=== PATIENT | male | born 1995 | race Caucasian/White ===

== ENCOUNTER 2016-07-27 10:00 | Emergency (ER) | payer BC, OTHER ==
[2016-07-27] MEDS ORDERED: Al Hydrox/Mg Hydrox/Simet LIQ* 30 ML UDC PO ONE ×2 (11:07→11:54)
[2016-07-27] MEDS ORDERED: Aspirin Low Dose CHEW TAB* 81 MG PO ONE (11:07)
[2016-07-27] MEDS ORDERED: Lidocaine 2% VISCOUS* 15 ML UDC PO ONE ×2 (11:07→11:54)
[2016-07-27 11:16] LABS: Hematocrit 46 % (42-52); Hemoglobin 15.3 g/dl (14.0-18.0); Mean Corpuscular HGB Conc 34 g/dl (31-36); Mean Corpuscular Hemoglobin 28 pg (27-31); Mean Corpuscular Volume 83 fL (80-94); Mean Platelet Volume 8 um3 (7.4-10.4); Red Blood Count 5.52 10^6/ul (4.0-5.4); Red Cell Distribution Width 13 % (10.5-15); White Blood Count 7.5 10^3/ul (3.5-10.8)
[2016-07-27 11:28] LABS: Albumin 4.5 g/dL (3.2-5.2); Calcium 9.3 mg/dL (8.6-10.3); EGFR African American 90.4 (>60); EGFR Non-African American 70.3 (>60); Globulin 2.9 g/dL (2-4); Total Bilirubin 0.3 mg/dL (0.2-1.0); Total Protein 7.4 g/dL (6.4-8.9)
[2016-07-27 11:32] LABS: Potassium 3.8 mmol/L (3.5-5.0)
--- NOTE | 2016-07-27 11:41 | RAD ---
HISTORY: Chest pain COMPARISONS: July 13, 2006 VIEWS:1: Single frontal portable view of the chest at 11:33 AM FINDINGS: LINES AND TUBES: None. CARDIOMEDIASTINAL SILHOUETTE: The cardiomediastinal silhouette is normal for portable technique. PLEURA: The costophrenic angles are sharp. No pleural abnormalities are noted. LUNG PARENCHYMA: The lungs are clear. ABDOMEN: The upper abdomen is clear. There is no subphrenic gas. BONES AND SOFT TISSUES: No bone or soft tissue abnormalities are noted. IMPRESSION: NO ACTIVE CARDIOPULMONARY DISEASE.
[2016-07-27 11:49] LABS: TSH (Thyroid Stimulating Horm) 5.33 mcIU/mL (0.34-5.60)
[2016-07-27] MEDS ORDERED: Famotidine IV* 10 MG/ML 2 ML (20 mg) IV SLOW PU ONE (11:55)
--- NOTE | 2016-07-27 12:09 | ED ---
HPI Chest Pain - HPI Summary HPI Summary: Pt here w/ central chest burning pain/pressure radiating into Lt shoulder. Feels like GERD pain he's had for years but has gotten worse in the past few weeks. Burning up into throat. He cannot sleep past few nights d/t pain so came in. Reports he's had GERD since 11 y.o. and did not take medication for this for 10 yrs. He was seen in April 2016 and states that an endoscope identified "stage 4" issue - was told he should have surgery immediately but he has postponed this d/t life transitions (ie. 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 He plans to move to [place] next week which is why he hasn't seen anyone recently. Has been taking protonix as directed but has not been taking carafate as directed. Tried a dose last night w/o relief so came in. Also admits he vomited a couple of days ago. Denies hematemesis, dark/ tarry stool, hematochezia. Has not been eating/drinking much as it's painful. Denies smoking, drinking ETOH, skipping meals and/or excessive caffeine. No cardiac hx. Father had an NV in his 60's. - History of Current Complaint Hx Obtained From: Patient Pain Intensity: 6 <Nichole Card - Last Filed: 07/27/16 16:17> <Di Ware - Last Filed: 08/02/16 10:44> - History of Current Complaint Chief Complaint: EDChestPainROMI Time Seen by Provider: 07/27/16 10:06 - Allergy/Home Medications Allergies/Adverse Reactions: Allergies Allergy/AdvReac Type Severity Reaction Status Date / Time No Known Allergies Allergy Verified 07/27/16 10:05 Home Medications: Home Medications Pantoprazole TAB (NF) [Protonix TAB (NF)] 40 mg PO BID 07/27/16 [History Confirmed 07/27/16] Sucralfate TAB* [Carafate*] 1 gm PO QID 07/27/16 [History Confirmed 07/27/16] PMH/Surg Hx/FS Hx/Imm Hx Previously Healthy: No - poor compliance w/ GERD dx Endocrine/Hematology History: Denies: Hx Anticoagulant Therapy, Hx Blood Disorders GI History: Reports: Hx Gastroesophageal Reflux Disease, Hx Hiatal Hernia Denies: Hx Cirrhosis, Hx Crohn's Disease, Hx Diverticulosis, Hx Gall Bladder Disease, Hx Gastrointestinal Bleed, Hx Irritable Bowel, Hx Obstructive Bowel Infectious Disease History: No Infectious Disease History: Denies: Traveled Outside the US in Last 30 Days - Family History Known Family History: Positive: Cardiac Disease - father - Social History Occupation: Retired Lives: With Family Alcohol Use: None Hx Substance Use: No Substance Use Type: Reports: None Hx Tobacco Use: No Smoking Status (MU): Never Smoked Tobacco <Nichole Card - Last Filed: 07/27/16 16:17> Review of Systems Negative: Fever, Chills Positive: Chest Pain - see HPI Negative: Shortness Of Breath, Cough Gastrointestinal: Other - see HPI Positive: no symptoms reported Musculoskeletal: Negative Skin: Negative Neurological: Negative Psychological: Normal - concerned All Other Systems Reviewed And Are Negative: Yes <Nichole Card - Last Filed: 07/27/16 16:17> Physical Exam Triage Information Reviewed: Yes Vital Signs On Initial Exam: Initial Vitals Temp Pulse Resp BP Pulse Ox 99.9 F 88 18 142/86 100 07/27/16 10:05 07/27/16 10:05 07/27/16 10:05 07/27/16 10:05 07/27/16 10:05 Vital Signs Reviewed: Yes Appearance: Positive: Well-Appearing, Pain Distress, Obese Skin: Positive: Warm, Dry Head/Face: Positive: Normal Head/Face Inspection Eyes: Positive: Normal, EOMI, Conjunctiva Clear - anicteric sclera ENT: Positive: Hearing grossly normal, Pharynx normal - mucosa moist Respiratory/Lung Sounds: Positive: Clear to Auscultation, Breath Sounds Present. Negative: Rales, Rhonchi, Stridor, Wheezes Cardiovascular: Positive: Normal, RRR, S1, S2 Abdomen Description: Positive: Soft, Other: - LUQ TTP - other areas of ab w/ "general soreness"; YINA non-painful - no mariya blood or dark/tarry stool observed; FOBT (-) Bowel Sounds: Positive: Present Musculoskeletal: Positive: Normal, Strength/ROM Intact Neurological: Positive: Normal, Sensory/Motor Intact, Alert, Oriented to Person Place, Time, CN Intact II-III Psychiatric: Positive: Anxious <Nichole Card - Last Filed: 07/27/16 16:17> Vital Signs On Initial Exam: Initial Vitals Temp Pulse Resp BP Pulse Ox 99.9 F 88 18 142/86 100 07/27/16 10:05 07/27/16 10:05 07/27/16 10:05 07/27/16 10:05 07/27/16 10:05 <Di Ware - Last Filed: 08/02/16 10:44> Diagnostics - Vital Signs Vital Signs Temp Pulse Resp BP Pulse Ox 07/27/16 10:30 89 10 145/80 100 07/27/16 10:21 87 12 99 07/27/16 10:20 140/84 07/27/16 10:05 99.9 F 88 18 142/86 100 - Laboratory Lab Results: Lab Results 07/27/16 07/27/16 07/27/16 Range/Units 10:19 10:19 10:19 WBC 7.5 (3.5-10.8) 10^3/ul RBC 5.52 H (4.0-5.4) 10^6/ul Hgb 15.3 (14.0-18.0) g/dl Hct 46 (42-52) % MCV 83 (80-94) fL MCH 28 (27-31) pg MCHC 34 (31-36) g/dl RDW 13 (10.5-15) % Plt Count 214 (150-450) 10^3/ul MPV 8 (7.4-10.4) um3 Neut % (Auto) 47.2 (38-83) % Lymph % (Auto) 42.1 (25-47) % George % (Auto) 8.2 (1-9) % Eos % (Auto) 1.8 (0-6) % Baso % (Auto) 0.7 (0-2) % Absolute Neuts (auto) 3.6 (1.5-7.7) 10^3/ul Absolute Lymphs (auto) 3.2 (1.0-4.8) 10^3/ul Absolute Monos (auto) 0.6 (0-0.8) 10^3/ul Absolute Eos (auto) 0.1 (0-0.6) 10^3/ul Absolute Basos (auto) 0 (0-0.2) 10^3/ul Absolute Nucleated RBC 0 10^3/ul Nucleated RBC % 0.1 INR (Anticoag Therapy) 0.82 L (0.89-1.11) APTT 28.3 (26.0-36.3) seconds Sodium 136 (133-145) mmol/L Potassium 3.8 (3.5-5.0) mmol/L Chloride 102 (101-111) mmol/L Carbon Dioxide 26 (22-32) mmol/L Anion Gap 8 (2-11) mmol/L BUN 14 (6-24) mg/dL Creatinine 1.27 H (0.67-1.17) mg/dL Est GFR ( Amer) 90.4 (>60) Est GFR (Non-Af Amer) 70.3 (>60) BUN/Creatinine Ratio 11.0 (8-20) Glucose 105 H (70-100) mg/dL Lactic Acid (0.5-2.0) mmol/L Calcium 9.3 (8.6-10.3) mg/dL Total Bilirubin 0.30 (0.2-1.0) mg/dL AST 25 (13-39) U/L ALT 31 (7-52) U/L Alkaline Phosphatase 51 (34-104) U/L Troponin I 0.00 (<0.04) ng/mL Total Protein 7.4 (6.4-8.9) g/dL Albumin 4.5 (3.2-5.2) g/dL Globulin 2.9 (2-4) g/dL Albumin/Globulin Ratio 1.6 (1-3) Amylase 41 (29-103) U/L Lipase 26 (11.0-82.0) U/L TSH 5.33 (0.34-5.60) mcIU/mL 07/27/16 Range/Units 10:19 WBC (3.5-10.8) 10^3/ul RBC (4.0-5.4) 10^6/ul Hgb (14.0-18.0) g/dl Hct (42-52) % MCV (80-94) fL MCH (27-31) pg MCHC (31-36) g/dl RDW (10.5-15) % Plt Count (150-450) 10^3/ul MPV (7.4-10.4) um3 Neut % (Auto) (38-83) % Lymph % (Auto) (25-47) % George % (Auto) (1-9) % Eos % (Auto) (0-6) % Baso % (Auto) (0-2) % Absolute Neuts (auto) (1.5-7.7) 10^3/ul Absolute Lymphs (auto) (1.0-4.8) 10^3/ul Absolute Monos (auto) (0-0.8) 10^3/ul Absolute Eos (auto) (0-0.6) 10^3/ul Absolute Basos (auto) (0-0.2) 10^3/ul Absolute Nucleated RBC 10^3/ul Nucleated RBC % INR (Anticoag Therapy) (0.89-1.11) APTT (26.0-36.3) seconds Sodium (133-145) mmol/L Potassium (3.5-5.0) mmol/L Chloride (101-111) mmol/L Carbon Dioxide (22-32) mmol/L Anion Gap (2-11) mmol/L BUN (6-24) mg/dL Creatinine (0.67-1.17) mg/dL Est GFR ( Amer) (>60) Est GFR (Non-Af Amer) (>60) BUN/Creatinine Ratio (8-20) Glucose (70-100) mg/dL Lactic Acid 1.2 (0.5-2.0) mmol/L Calcium (8.6-10.3) mg/dL Total Bilirubin (0.2-1.0) mg/dL AST (13-39) U/L ALT (7-52) U/L Alkaline Phosphatase (34-104) U/L Troponin I (<0.04) ng/mL Total Protein (6.4-8.9) g/dL Albumin (3.2-5.2) g/dL Globulin (2-4) g/dL Albumin/Globulin Ratio (1-3) Amylase (29-103) U/L Lipase (11.0-82.0) U/L TSH (0.34-5.60) mcIU/mL Result Diagrams: 07/27/16 10:19 07/27/16 10:19 Lab Statement: Any lab studies that have been ordered have been reviewed, and results considered in the medical decision making process. <Nichole Card - Last Filed: 07/27/16 16:17> - Vital Signs Vital Signs Temp Pulse Resp BP Pulse Ox 07/27/16 13:54 18 07/27/16 13:30 62 14 125/65 96 07/27/16 13:18 16 07/27/16 13:00 57 15 120/65 96 07/27/16 12:30 67 10 123/65 97 07/27/16 12:00 68 16 115/51 97 07/27/16 11:30 71 13 116/73 98 07/27/16 11:00 81 17 134/78 99 07/27/16 10:30 89 10 145/80 100 07/27/16 10:21 87 12 99 07/27/16 10:20 140/84 07/27/16 10:05 99.9 F 88 18 142/86 100 - Laboratory Lab Results: Lab Results 07/27/16 07/27/16 07/27/16 Range/Units 10:19 10:19 10:19 WBC 7.5 (3.5-10.8) 10^3/ul RBC 5.52 H (4.0-5.4) 10^6/ul Hgb 15.3 (14.0-18.0) g/dl Hct 46 (42-52) % MCV 83 (80-94) fL MCH 28 (27-31) pg MCHC 34 (31-36) g/dl RDW 13 (10.5-15) % Plt Count 214 (150-450) 10^3/ul MPV 8 (7.4-10.4) um3 Neut % (Auto) 47.2 (38-83) % Lymph % (Auto) 42.1 (25-47) % George % (Auto) 8.2 (1-9) % Eos % (Auto) 1.8 (0-6) % Baso % (Auto) 0.7 (0-2) % Absolute Neuts (auto) 3.6 (1.5-7.7) 10^3/ul Absolute Lymphs (auto) 3.2 (1.0-4.8) 10^3/ul Absolute Monos (auto) 0.6 (0-0.8) 10^3/ul Absolute Eos (auto) 0.1 (0-0.6) 10^3/ul Absolute Basos (auto) 0 (0-0.2) 10^3/ul Absolute Nucleated RBC 0 10^3/ul Nucleated RBC % 0.1 INR (Anticoag Therapy) 0.82 L (0.89-1.11) APTT 28.3 (26.0-36.3) seconds Sodium 136 (133-145) mmol/L Potassium 3.8 (3.5-5.0) mmol/L Chloride 102 (101-111) mmol/L Carbon Dioxide 26 (22-32) mmol/L Anion Gap 8 (2-11) mmol/L BUN 14 (6-24) mg/dL Creatinine 1.27 H (0.67-1.17) mg/dL Est GFR ( Amer) 90.4 (>60) Est GFR (Non-Af Amer) 70.3 (>60) BUN/Creatinine Ratio 11.0 (8-20) Glucose 105 H (70-100) mg/dL Lactic Acid (0.5-2.0) mmol/L Calcium 9.3 (8.6-10.3) mg/dL Total Bilirubin 0.30 (0.2-1.0) mg/dL AST 25 (13-39) U/L ALT 31 (7-52) U/L Alkaline Phosphatase 51 (34-104) U/L Troponin I 0.00 (<0.04) ng/mL Total Protein 7.4 (6.4-8.9) g/dL Albumin 4.5 (3.2-5.2) g/dL Globulin 2.9 (2-4) g/dL Albumin/Globulin Ratio 1.6 (1-3) Amylase 41 (29-103) U/L Lipase 26 (11.0-82.0) U/L TSH 5.33 (0.34-5.60) mcIU/mL 07/27/16 Range/Units 10:19 WBC (3.5-10.8) 10^3/ul RBC (4.0-5.4) 10^6/ul Hgb (14.0-18.0) g/dl Hct (42-52) % MCV (80-94) fL MCH (27-31) pg MCHC (31-36) g/dl RDW (10.5-15) % Plt Count (150-450) 10^3/ul MPV (7.4-10.4) um3 Neut % (Auto) (38-83) % Lymph % (Auto) (25-47) % George % (Auto) (1-9) % Eos % (Auto) (0-6) % Baso % (Auto) (0-2) % Absolute Neuts (auto) (1.5-7.7) 10^3/ul Absolute Lymphs (auto) (1.0-4.8) 10^3/ul Absolute Monos (auto) (0-0.8) 10^3/ul Absolute Eos (auto) (0-0.6) 10^3/ul Absolute Basos (auto) (0-0.2) 10^3/ul Absolute Nucleated RBC 10^3/ul Nucleated RBC % INR (Anticoag Therapy) (0.89-1.11) APTT (26.0-36.3) seconds Sodium (133-145) mmol/L Potassium (3.5-5.0) mmol/L Chloride (101-111) mmol/L Carbon Dioxide (22-32) mmol/L Anion Gap (2-11) mmol/L BUN (6-24) mg/dL Creatinine (0.67-1.17) mg/dL Est GFR ( Amer) (>60) Est GFR (Non-Af Amer) (>60) BUN/Creatinine Ratio (8-20) Glucose (70-100) mg/dL Lactic Acid 1.2 (0.5-2.0) mmol/L Calcium (8.6-10.3) mg/dL Total Bilirubin (0.2-1.0) mg/dL AST (13-39) U/L ALT (7-52) U/L Alkaline Phosphatase (34-104) U/L Troponin I (<0.04) ng/mL Total Protein (6.4-8.9) g/dL Albumin (3.2-5.2) g/dL Globulin (2-4) g/dL Albumin/Globulin Ratio (1-3) Amylase (29-103) U/L Lipase (11.0-82.0) U/L TSH (0.34-5.60) mcIU/mL Result Diagrams: 07/27/16 10:19 07/27/16 10:19 Lab Statement: Any lab studies that have been ordered have been reviewed, and results considered in the medical decision making process. <Di Ware - Last Filed: 08/02/16 10:44> Re-Evaluation - Re-Evaluation First Eval Change: Improved - brief relief w/ GI cocktail - requesting a 2nd dose; okay and added pepcid Second Eval Change: Unchanged - added carafate, moprhine and zofran <Nichole Card - Last Filed: 07/27/16 16:17> Chest Pain Course/Dx - Course Course Of Treatment: Acute on chronic GERD w/ h/o hiatal hernia. Pt had some relief GI cocktail - d/c'd w/ new medication regimen and close f/u at GI this week - call Friday to schedule. Reviewed danger s/sx of when to return - pt agrees w/ plan and voices understanding. - Provider Notifications Discussed Care Of Patient With: Dr. Ware <Nichole Card - Last Filed: 07/27/16 16:17> <Di Ware - Last Filed: 08/02/16 10:44> - Diagnoses Provider Diagnoses: Chronic GERD, Hx of hiatal hernia Discharge <Nichole Card - Last Filed: 07/27/16 16:17> <Di Ware - Last Filed: 08/02/16 10:44> - Discharge Plan Condition: Stable Disposition: HOME Prescriptions: Famotidine TAB* [Pepcid TAB*] 40 mg PO BID #28 tab Patient Education Materials: Gastroesophageal Reflux Disease (ED) Referrals: Henry Noel MD [Medical Doctor] - Zeina Willams NP [Primary Care Provider] - Additional Instructions: Continue protonix and add Maalox and Pepcid. Start taking carafate as directed by your GI specialist. Consume bland foods only - avoid spicy, greasy foods/ caffeine, alcohol, tobacco, chocolate and eat small amounts. You do not appear to have a GI bleed here today. Call Dr. Noel on Friday to schedule an appointment. It will be helpful for you to provide records from endoscopy in April of this year. *If you develop worsening of abdominal pain, vomiting, dark stool, bloody stool , diarrhea, shortness of breath, weakness or increased heart rate, return to ED Attestations Scribe Attestation: I was available for consult. This patient was seen by the advanced practice provider. The patient was seen by, or examined by me. User Type: Provider <Di Ware - Last Filed: 08/02/16 10:44>
[2016-07-27] MEDS ORDERED: Sucralfate TAB* 1 GM PO ONE (12:51)
[2016-07-27] MEDS ORDERED: Ondansetron INJ* 2 MG/ML VIAL IV ONE (12:53)
[2016-07-27] MEDS ORDERED: Morphine INJ* 4 MG/ML 1 ML CARPUJECT IV ONE (12:53)
[2016-07-27 13:37] VITALS: BP 125/65
== END 2016-07-27 13:54 | disposition home or self-care (01) ==
LOC: ED 10:00
DX: K21.9 Gastro-esophageal reflux disease without esophagitis (principal)
CPT/HCPCS: 36415; 71010; 80053; 82150; 82272; 83605; 83690; 84443; 84484; 85025; 85610; 85730; 93005; 99284; A9270-GY; J2270; J2405

== ENCOUNTER 2016-07-28 23:17 | Emergency (ER) | payer BC, OTHER ==
[2016-07-28] MEDS ORDERED: Lidocaine 2% VISCOUS* 15 ML UDC PO ONE (23:44)
[2016-07-28] MEDS ORDERED: NS 0.9% 1000 ML* 1,000 ML IV ONE (23:44)
[2016-07-28] MEDS ORDERED: Al Hydrox/Mg Hydrox/Simet LIQ* 30 ML UDC PO ONE (23:44)
[2016-07-28] MEDS ORDERED: Hyoscyamine TAB* 0.125 MG PO ONE (23:47)
--- NOTE | 2016-07-28 23:56 | ED ---
Abdominal Pain/Male - HPI Summary HPI Summary: Patient was evaluated in this ED yesterday for severe LUQ pain related to he history of GERD and hiatal hernia. Cardiac causes were ruled out and patient was discharged home with a plan in place, including GI referral. He took the recommended medication today, but his symptoms returned tonight more severe than ever. He was diagnosed with grade D GERD in the [employer] and was to undergo surgery for his hiatal hernia, but was discharged before this was performed. His pain is isolated to the LUQ, and feels like "there is an anchor in there" with a burning sensation. He ate a sub today and this didn't help. He has vomited 3 times without noticing any blood. He denies urinary or bowel symptoms. No abdominal pain, back pain, sternal chest pain, neck pain or FENG. No fever or chills. - History of Current Complaint Chief Complaint: EDAbdPain Stated Complaint: CHEST PAIN/ULQ PAIN Time Seen by Provider: 07/28/16 23:29 Hx Obtained From: Patient Onset/Duration: Gradual Onset Timing: Constant Severity Initially: Severe Severity Currently: Severe Pain Intensity: 7 Location: Discrete At: LUQ Radiates: No Character: Sharp, Burning Aggravating Factor(s): Food Alleviating Factor(s): Nothing Associated Signs And Symptoms: Positive: Vomiting - Allergies/Home Medications Allergies/Adverse Reactions: Allergies Allergy/AdvReac Type Severity Reaction Status Date / Time No Known Allergies Allergy Verified 07/27/16 10:05 PMH/Surg Hx/FS Hx/Imm Hx Endocrine/Hematology History: Denies: Hx Anticoagulant Therapy, Hx Blood Disorders GI History: Reports: Hx Gastroesophageal Reflux Disease, Hx Hiatal Hernia Denies: Hx Cirrhosis, Hx Crohn's Disease, Hx Diverticulosis, Hx Gall Bladder Disease, Hx Gastrointestinal Bleed, Hx Irritable Bowel, Hx Obstructive Bowel Infectious Disease History: No Infectious Disease History: Reports: Traveled Outside the [place] in Last 30 Days - [place] - Family History Known Family History: Positive: Cardiac Disease - father - Social History Occupation: Employed Full-time Lives: With Family Alcohol Use: None Hx Substance Use: No Substance Use Type: Reports: None Hx Tobacco Use: No Smoking Status (MU): Never Smoked Tobacco Review of Systems Negative: Fever, Chills Negative: Sore Throat, Nasal Discharge Negative: Chest Pain Negative: Shortness Of Breath, Cough Positive: Abdominal Pain, Vomiting Positive: no symptoms reported Negative: Edema Negative: Headache All Other Systems Reviewed And Are Negative: Yes Physical Exam Triage Information Reviewed: Yes Vital Signs On Initial Exam: Initial Vitals Temp Pulse Resp BP Pulse Ox 98.9 F 79 16 156/78 98 07/28/16 23:20 07/28/16 23:20 07/28/16 23:20 07/28/16 23:20 07/28/16 23:20 Vital Signs Reviewed: Yes Appearance: Positive: Well-Appearing, Pain Distress - patient visibly uncomfortable, bracing his left side, Obese Skin: Positive: Warm, Skin Color Reflects Adequate Perfusion, Dry, Soft Head/Face: Positive: Normal Head/Face Inspection Eyes: Positive: EOMI, ROANL, Conjunctiva Clear ENT: Positive: Hearing grossly normal Neck: Positive: Supple, Nontender, No Lymphadenopathy Respiratory/Lung Sounds: Positive: Clear to Auscultation, Breath Sounds Present Cardiovascular: Positive: RRR Abdomen Description: Positive: Soft - Body habitus is limiting, Guarding. Negative: Nontender - TTP LUQ with mild tenderness in other quadrants, CVA Tenderness (R), CVA Tenderness (L) Bowel Sounds: Positive: Present Musculoskeletal: Negative: Edema Left, Edema Right Neurological: Positive: Sensory/Motor Intact, Alert, Oriented to Person Place, Time Psychiatric: Positive: Affect/Mood Appropriate AVPU Assessment: Alert Diagnostics - Vital Signs Vital Signs Temp Pulse Resp BP Pulse Ox 07/28/16 23:20 98.9 F 79 16 156/78 98 - Laboratory Result Diagrams: 07/29/16 00:06 07/29/16 00:06 Lab Statement: Any lab studies that have been ordered have been reviewed, and results considered in the medical decision making process. - CT No standard instances CT Interpretation: No Acute Changes CT Interpretation Completed By: Radiologist Re-Evaluation - Re-Evaluation First Eval Change: Unchanged - Patient continues to have severe pain with nausea, therefore he can not manage any PO medication. Will add reglan, famotadine and morphine Second Eval Re-Evaluation Time: 01:30 - Pain diminished and patient able to take oral contrast Change: Improved Abdominal Pain Fem Course/Dx - Diagnoses Differential Diagnosis/HQI/PQRI: Abdominal Aortic Aneurysm, Bowel Obstruction, Constipation, Diverticulitis, Gall Bladder Disease, Ischemic Bowel, Peptic Ulcer Disease, Renal Colic Provider Diagnoses: Abdominal pain Discharge - Discharge Plan Condition: Improved Disposition: HOME Patient Education Materials: Diet for Ulcers and Gastritis (ED), Abdominal Pain (ED) Referrals: Zeina Willams NP [Primary Care Provider] -
[2016-07-28] MEDS ORDERED: Ondansetron INJ* 2 MG/ML VIAL IV ONE (23:59)
[2016-07-29 00:35] LABS: Hematocrit 46 % (42-52); Hemoglobin 15.5 g/dl (14.0-18.0); Mean Corpuscular HGB Conc 34 g/dl (31-36); Mean Corpuscular Hemoglobin 28 pg (27-31); Mean Corpuscular Volume 82 fL (80-94); Mean Platelet Volume 9 um3 (7.4-10.4); Red Blood Count 5.52 10^6/ul (4.0-5.4); Red Cell Distribution Width 14 % (10.5-15); White Blood Count 9.2 10^3/ul (3.5-10.8)
[2016-07-29] MEDS ORDERED: Morphine INJ* 10 MG/ML 1 ML CARPUJECT IV ONE (00:35)
[2016-07-29] MEDS ORDERED: Metoclopramide IV* 5 MG/ML 2 ML VIAL IV ONE (00:35)
[2016-07-29] MEDS ORDERED: Famotidine IV* 10 MG/ML 2 ML (20 mg) IV SLOW PU ONE (00:40)
[2016-07-29] MEDS ORDERED: Famotidine IV* 10 MG/ML 2 ML (20 mg) ONE (00:42)
[2016-07-29 00:44] LABS: Albumin 4.7 g/dL (3.2-5.2); BUN/Creatinine Ratio 13.1 (8-20); C Reactive Protein 2.72 mg/L (< 5.00); Calcium 9.5 mg/dL (8.6-10.3); EGFR Non-African American 68.4 (>60); Globulin 2.6 g/dL (2-4); Total Bilirubin 0.5 mg/dL (0.2-1.0); Total Protein 7.3 g/dL (6.4-8.9)
[2016-07-29 00:52] LABS: Potassium 4.2 mmol/L (3.5-5.0)
[2016-07-29] MEDS ORDERED: Iohexol 300* (CONTRAST) 10 ML SDV IV ONE (01:36)
[2016-07-29 03:14] VITALS: BP 141/70
--- NOTE | 2016-07-29 07:55 | RAD ---
INDICATION: Severe left upper quadrant pain. COMPARISON: Comparison is made with a prior chest x-ray study from July 27, [address] of the abdomen and pelvis from August 14, 2008. TECHNIQUE: A CT scan of the chest, abdomen and pelvis was performed with intravenous and oral contrast following intravenous injection of 150 ml of Omnipaque 300 nonionic contrast. Contiguous axial sections were obtained from the lung apices through the symphysis pubis. Images were reconstructed in the coronal and sagittal planes. FINDINGS: There is minimal dependent bilateral lower lobe subsegmental atelectasis. The lungs are otherwise clear. No pleural effusion or pneumothorax is seen. No significant enlarged mediastinal or hilar lymph nodes are seen. There is a small to moderate size hiatal hernia present. The heart is within normal limits in size. No pericardial effusion is present. The thoracic aorta is normal in caliber. The liver and spleen are normal in size without significant focal abnormality. No calcified gallstones are seen. The pancreas appears to be within normal limits in size. The kidneys and adrenal glands are normal in size. There is no evidence for hydronephrosis. No significant focal renal abnormality is seen. The aorta is normal in caliber and demonstrates homogeneous contrast opacification. No significant enlarged retroperitoneal lymph nodes are seen. The stomach, small and large bowel appear nondistended. The appendix is nondistended. No inflammatory changes are seen. There is no evidence for diverticulitis or colitis. There is a small periumbilical hernia containing fat. No free intraperitoneal air or fluid is seen. No significant focal osseous abnormality is seen. IMPRESSION: 1. NO EVIDENCE FOR ACUTE FINDING OR CAUSE FOR THE PATIENT'S ABDOMINAL PAIN IS SEEN. 2. SMALL TO MODERATE-SIZED HIATAL HERNIA.
== END 2016-07-29 03:12 | disposition home or self-care (01) ==
LOC: ED 23:17
DX: R10.12 Left upper quadrant pain (principal); R11.10 Vomiting, unspecified
CPT/HCPCS: 36415; 71260; 74177; 80053; 82150; 83690; 84484; 85025; 86140; 96360; 96374; 99282; 99285; A9270-GY; J2270; J2405; J2765; Q9967

== ENCOUNTER 2016-09-09 02:26 | Emergency (ER) | payer OTHER ==
[2016-09-09] MEDS ORDERED: Magnesium CITRATE* 300 ML BTL PO ONE (02:50)
--- NOTE | 2016-09-09 02:59 | ED ---
bev Gonzalez Timothy, scribed for Ramon Martinez MD on 09/09/16 at 0253 . GI/ HPI - HPI Summary HPI Summary: Lc Acuña is a 21 yo male presenting to [facility] with 7/10 rectal pain since 0900 09/08/16. Pt states he had surgery 09/03/16, and hasn't had a BM since. Pt states he is constipated from narcotics, and that he has self-medicated with colace and prune juice, as well as 1 tab of percocet at 1999. His Mhx includes muscle damage in his right foot, GERD, hiatal hernia surgery 09/03/16. - History of Current Complaint Chief Complaint: EDRectalPain Time Seen by Provider: 09/09/16 02:48 Stated Complaint: RECTAL PAIN POST SURGERY Hx Obtained From: Patient Onset/Duration: Started Days Ago Timing: Constant Severity: Moderate Current Severity: Moderate Pain Intensity: 7 Location of Pain: Diffuse Associated Signs and Symptoms: Positive: Constipation, Abdominal Pain - rectal pain - Allergy/Home Medications Allergies/Adverse Reactions: Allergies Allergy/AdvReac Type Severity Reaction Status Date / Time Morphine AdvReac Mild See Comment Verified 09/09/16 02:37 PMH/Surg Hx/FS Hx/Imm Hx Endocrine/Hematology History: Denies: Hx Anticoagulant Therapy, Hx Blood Disorders, Hx Diabetes Cardiovascular History: Denies: Hx Hypertension GI History: Reports: Hx Gastroesophageal Reflux Disease, Hx Hiatal Hernia Denies: Hx Cirrhosis, Hx Crohn's Disease, Hx Diverticulosis, Hx Gall Bladder Disease, Hx Gastrointestinal Bleed, Hx Irritable Bowel, Hx Obstructive Bowel History: Denies: Hx Renal Disease Infectious Disease History: No Infectious Disease History: Denies: Traveled Outside the [place] in Last 30 Days - Family History Known Family History: Positive: Cardiac Disease - father - Social History Alcohol Use: None Hx Substance Use: No Substance Use Type: Reports: None Hx Tobacco Use: No Smoking Status (MU): Never Smoked Tobacco Review of Systems Constitutional: Negative Eyes: Negative ENT: Negative Cardiovascular: Negative Respiratory: Negative Positive: Abdominal Pain - rectal pain, Other - constipation Musculoskeletal: Negative Skin: Negative Neurological: Negative Psychological: Normal All Other Systems Reviewed And Are Negative: Yes Physical Exam Triage Information Reviewed: Yes Vital Signs On Initial Exam: Initial Vitals Temp Pulse Resp BP Pulse Ox 97.9 F 84 16 142/94 100 09/09/16 02:32 09/09/16 02:32 09/09/16 02:32 09/09/16 02:32 09/09/16 02:32 Vital Signs Reviewed: Yes Appearance: Positive: Well-Appearing, No Pain Distress Skin: Positive: Warm Head/Face: Positive: Normal Head/Face Inspection Eyes: Positive: RONAL ENT: Positive: Hearing grossly normal Respiratory/Lung Sounds: Positive: Breath Sounds Present Abdomen Description: Positive: Nontender, No Organomegaly, Soft Bowel Sounds: Positive: Present Musculoskeletal: Positive: Strength/ROM Intact Neurological: Positive: Alert, Oriented to Person Place, Time Diagnostics - Vital Signs Vital Signs Temp Pulse Resp BP Pulse Ox 09/09/16 02:32 97.9 F 84 16 142/94 100 - Laboratory Lab Statement: Any lab studies that have been ordered have been reviewed, and results considered in the medical decision making process. GIGU Course/Dx - Course Assessment/Plan: Lc Acuña is a 21 yo male presenting to [facility] with rectal pain and constipation S/P surgery 09/03/16. After clinical examination, he will be discharged home with constipation and instructions to follow up with his surgeon. - Diagnoses Provider Diagnoses: Constipation Discharge - Discharge Plan Condition: Stable Disposition: HOME Prescriptions: Polyethylene Glycol 3350* [Miralax*] 17 gm PO DAILY #10 packet Patient Education Materials: Constipation (ED) Referrals: Zeina Willams NP [Primary Care Provider] - Additional Instructions: Please follow up with your surgeon, Dr. Ba at [facility] tomorrow regarding your visit to the emergency department today. Return to the emergency department with any new or recurring symptoms. The documentation as recorded by the bev macdonald Timothy accurately reflects the service I personally performed and the decisions made by me, Ramon Martinez MD.
[2016-09-09 03:34] VITALS: BP 135/72
== END 2016-09-09 03:33 | disposition home or self-care (01) ==
LOC: ED 02:26
DX: K59.00 Constipation, unspecified (principal); K62.89 Other specified diseases of anus and rectum; R10.9 Unspecified abdominal pain
CPT/HCPCS: 99282; A9270-GY

== ENCOUNTER 2016-12-09 16:21 | Emergency (ER) | payer BC, OTHER ==
[2016-12-09 19:12] LABS: Hematocrit 45 % (42-52); Hemoglobin 14.9 g/dl (14.0-18.0); Mean Corpuscular HGB Conc 33 g/dl (31-36); Mean Corpuscular Hemoglobin 28 pg (27-31); Mean Corpuscular Volume 84 fL (80-94); Mean Platelet Volume 9 um3 (7.4-10.4); Red Blood Count 5.35 10^6/ul (4.0-5.4); Red Cell Distribution Width 14 % (10.5-15); White Blood Count 9.3 10^3/ul (3.5-10.8)
[2016-12-09 19:24] LABS: Albumin 4.7 g/dL (3.2-5.2); BUN/Creatinine Ratio 9.6 (8-20); Calcium 9.6 mg/dL (8.6-10.3); EGFR African American 92.1 (>60); EGFR Non-African American 71.6 (>60); Globulin 2.8 g/dL (2-4); Potassium 3.9 mmol/L (3.5-5.0); Total Bilirubin 0.6 mg/dL (0.2-1.0); Total Protein 7.5 g/dL (6.4-8.9)
[2016-12-09 19:25] LABS: Troponin I 0.01 ng/mL (<0.04)
--- NOTE | 2016-12-09 20:13 | RAD ---
INDICATION: Chest pain COMPARISON: Most recent comparison chest x-ray is dated July 27, 2016 TECHNIQUE: Single AP portable view of the chest was obtained. FINDINGS: Image quality is compromised due to the relative inferiority of a portable chest x-ray. The heart and mediastinum exhibit normal size and contour. The lungs are grossly clear. There is no evidence of a large pleural effusion. Visualized bones are normal for the patient's age. IMPRESSION: No radiographic evidence for acute cardiopulmonary abnormality on this portable chest x-ray.
--- NOTE | 2016-12-09 21:17 | ED ---
HPI Chest Pain - HPI Summary HPI Summary: 21 male presents with complaints of intermittent episode of chest pain/ pressure , feeling lightheaded and palpitations that have been ongoing for the past week. Patient states symptoms have seemed to become more frequent and worsen over the past 2 days. He has not taken any medication for this discomfort. States the intermittent episodes occur randomly where it feels as though his heart skips a beat, or "takes a long time to beat" and then sometimes beats fast. These episodes last ~ 20 seconds. During these episodes he becomes lighteheaded and faint. Admits to some radiation to left arm and under left pectoral muscle. Patient had undergone hiatal hernia surgery in August 2016 that was effecting his vagus nerve due to the location of his stomach in his chest. He had similar symptoms back before this surgery was completed. He has been fine since the surgery however, ever since he started to work out 1 week ago and take creatine he has began to feel similar heart palpitations and pain. Describes the pain as sharp and pressure. Denies shortness of breath, dyspnea and difficulty breathing. Denies cough. Denies nausea, vomiting, dizziness, weakness, diaphoresis, and headache. Denies any other medical problems besides hiatal hernia and esonophilic esophagitis. Rest makes the pain better, working out makes pain worse. - History of Current Complaint Chief Complaint: EDChestPainROMI Time Seen by Provider: 12/09/16 19:03 Hx Obtained From: Patient Onset/Duration: Started Weeks Ago, Still Present, Worse Since Timing: Intermittent, Lasting Seconds Initial Severity: Mild Current Severity: Moderate Pain Intensity: 5 Pain Scale Used: 0-10 Numeric Chest Pain Location: Mid Sternal, Left Lateral Chest Pain Radiates: Yes Chest Pain Radiates To:: Arm Character: Pressure/Squeezing, Sharp/Stabbing, Skipped Beats, Slow Aggravating Factor(s): Exertion Alleviating Factor(s): Rest Associated Signs and Symptoms: Positive: Chest Pain, Lightheadedness, Palpitations Related History: Similar Episode/Dx as: - before hiatal hernia surgery August 2016, thought to be pressure on vagus nerve causing irrgeular heart beats - Additional Pertinent History Primary Care Physician: Dr Schmitz spouting installer - Allergy/Home Medications Allergies/Adverse Reactions: Allergies Allergy/AdvReac Type Severity Reaction Status Date / Time Lansoprazole Allergy Diaphoresis Verified 12/09/16 18:17 Morphine AdvReac Mild See Comment Verified 09/09/16 02:37 Home Medications: Home Medications Creatinine (Bulk) [Creatinine] 2 powder PO DAILY 12/09/16 [History Confirmed ] PMH/Surg Hx/FS Hx/Imm Hx Endocrine/Hematology History: Denies: Hx Anticoagulant Therapy, Hx Blood Disorders, Hx Diabetes Cardiovascular History: Denies: Hx Hypertension Respiratory History: Denies: Hx Asthma GI History: Reports: Hx Gastroesophageal Reflux Disease, Hx Hiatal Hernia Denies: Hx Cirrhosis, Hx Crohn's Disease, Hx Diverticulosis, Hx Gall Bladder Disease, Hx Gastrointestinal Bleed, Hx Irritable Bowel, Hx Obstructive Bowel History: Denies: Hx Renal Disease Neurological History: 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 - Surgical History Surgery Procedure, Year, and Place: hiatal hernia repair Aug 2016 - Immunization History Immunizations Up to Date: Yes Infectious Disease History: No Infectious Disease History: Denies: Traveled Outside the [place] in Last 30 Days - Family History Known Family History: Positive: Cardiac Disease - father - Social History Alcohol Use: None Hx Substance Use: No Substance Use Type: Reports: None Hx Tobacco Use: No Smoking Status (MU): Never Smoked Tobacco Review of Systems Constitutional: Negative Eyes: Negative ENT: Negative Positive: Palpitations, Chest Pain Respiratory: Negative Gastrointestinal: Negative Musculoskeletal: Negative Skin: Negative Neurological: Other - lightheadedness Psychological: Normal All Other Systems Reviewed And Are Negative: Yes Physical Exam Triage Information Reviewed: Yes Vital Signs On Initial Exam: Initial Vitals Temp Resp Pulse Ox 99.1 F 20 100 12/09/16 16:29 12/09/16 16:29 12/09/16 16:29 heart rate: 77 BP: 117/64 Vital Signs Reviewed: Yes Appearance: Positive: Well-Appearing, No Pain Distress, Well-Nourished, Obese Skin: Positive: Warm, Skin Color Reflects Adequate Perfusion, Dry. Negative: Cyanosis @, Diaphoretic Head/Face: Positive: Normal Head/Face Inspection Eyes: Positive: Normal, EOMI, RONAL, Conjunctiva Clear ENT: Positive: Normal ENT inspection, Hearing grossly normal, Pharynx normal, TMs normal Neck: Positive: Supple, Nontender, No Lymphadenopathy Respiratory/Lung Sounds: Positive: Clear to Auscultation, Breath Sounds Present. Negative: Decreased Breath Sounds, Rales, Rhonchi, Stridor, Tracheal Deviation, Wheezes, Unable to speak in full sentences, Fatigue Cardiovascular: Positive: Normal, RRR, Pulses are Symmetrical in both Upper and Lower Extremities - 2+, Other - no JVD or carotid bruits noted. Negative: Murmur, Rub, Leg Edema Left, Leg Edema Right Abdomen Description: Positive: Nontender, No Organomegaly, Soft. Negative: Bruit, Pulsatile Mass Bowel Sounds: Positive: Present Musculoskeletal: Positive: Normal, Strength/ROM Intact, Other - chest pain is non-reproducible. Negative: Catina Sign Left, Catina Sign Right, Edema Left, Edema Right Neurological: Positive: Normal, Sensory/Motor Intact, Alert, Oriented to Person Place, Time, CN Intact II-III, Reflexes Intact, Normal Gait Psychiatric: Positive: Normal AVPU Assessment: Alert - [place] Coma Scale Coma Scale Total: 15 Diagnostics - Vital Signs Vital Signs Temp Pulse Resp BP Pulse Ox 12/09/16 18:16 99.3 F 12/09/16 18:13 157/83 12/09/16 17:34 98.7 F 69 20 139/60 100 12/09/16 16:32 97.9 F 81 20 130/60 100 12/09/16 16:29 99.1 F 20 100 - Laboratory Lab Results: Lab Results 12/09/16 12/09/16 12/09/16 Range/Units 18:41 18:41 18:41 WBC 9.3 (3.5-10.8) 10^3/ul RBC 5.35 (4.0-5.4) 10^6/ul Hgb 14.9 (14.0-18.0) g/dl Hct 45 (42-52) % MCV 84 (80-94) fL MCH 28 (27-31) pg MCHC 33 (31-36) g/dl RDW 14 (10.5-15) % Plt Count 217 (150-450) 10^3/ul MPV 9 (7.4-10.4) um3 Neut % (Auto) 72.9 (38-83) % Lymph % (Auto) 18.5 L (25-47) % Hendricks % (Auto) 7.7 (1-9) % Eos % (Auto) 0.3 (0-6) % Baso % (Auto) 0.6 (0-2) % Absolute Neuts (auto) 6.8 (1.5-7.7) 10^3/ul Absolute Lymphs (auto) 1.7 (1.0-4.8) 10^3/ul Absolute Monos (auto) 0.7 (0-0.8) 10^3/ul Absolute Eos (auto) 0 (0-0.6) 10^3/ul Absolute Basos (auto) 0.1 (0-0.2) 10^3/ul Absolute Nucleated RBC 0 10^3/ul Nucleated RBC % 0 Sodium 137 (133-145) mmol/L Potassium 3.9 (3.5-5.0) mmol/L Chloride 103 (101-111) mmol/L Carbon Dioxide 26 (22-32) mmol/L Anion Gap 8 (2-11) mmol/L BUN 12 (6-24) mg/dL Creatinine 1.25 H (0.67-1.17) mg/dL Est GFR ( Amer) 92.1 (>60) Est GFR (Non-Af Amer) 71.6 (>60) BUN/Creatinine Ratio 9.6 (8-20) Glucose 104 H (70-100) mg/dL Lactic Acid 0.9 (0.5-2.0) mmol/L Calcium 9.6 (8.6-10.3) mg/dL Total Bilirubin 0.60 (0.2-1.0) mg/dL AST 43 H (13-39) U/L ALT 37 (7-52) U/L Alkaline Phosphatase 52 (34-104) U/L Troponin I 0.01 (<0.04) ng/mL Total Protein 7.5 (6.4-8.9) g/dL Albumin 4.7 (3.2-5.2) g/dL Globulin 2.8 (2-4) g/dL Albumin/Globulin Ratio 1.7 (1-3) Result Diagrams: 12/09/16 18:41 12/09/16 18:41 Lab Statement: Any lab studies that have been ordered have been reviewed, and results considered in the medical decision making process. - Radiology chest Xray Interpretation: No Acute Changes - No radiographic evidence for acute cardiopulmonary abnormality on this portable chest x-ray. Radiology Interpretation Completed By: Radiologist - EKG EKG Cardiac Rate: NL EKG Rhythm: Sinus Rhythm ST Segment: Non-Specific - abnormality Ectopy: None Chest Pain Course/Dx - Course Course Of Treatment: given aspirin while in ED. patient was feeling better since last episode, has not had another while in ED. labs and EKG ordered. EKG showed similar to PCP EKG prior to arrival with unspecific ST segment changes. no sign of MO or arrythmia while in ED, labs and tropinin negative. electrolytes normal. chest x-ray normal. spoke with Dr Martinez about patient. Safe to d/c home with close follow up with cardiology- referral appointment already made by PCP. refrain from physical activity and over exertion (heavy lifting/working out), rest, aspirin as needed, discontinue use of supplemental creatine. Aware of worsening signs and symptoms to return immediatley for. Due to PE findings and HPI may be dysfunction of vagus nerve or underlying arrythmia. No urgent need for further imaging at this time. - Chest Pain Differential Diagnosis/HQI/PQRI: Acute MO, Angina, Chest Wall, Lower Respiratory Infection, Other: - Diagnoses Provider Diagnoses: Chest pain on exertion, Heart palpitations - Provider Notifications Discussed Care Of Patient With: Dr Martinez- also evaluated patient- stated safe to d/c home Discharge - Discharge Plan Condition: Stable Disposition: HOME Patient Education Materials: Chest Pain (ED), Palpitations (ED) Referrals: Zeina Willams NP [Primary Care Provider] - Additional Instructions: Take OTC aspirin to help with pain as needed, with food. Refrain from exertion and physical activity until seen by your spouting installer. Stop taking Creatine. Drink plenty of fluids and get plenty of rest. IF your symptoms worsen, become more frequent or new symptoms develop please return to ED promptly. Follow up with spouting installer and GI doctor STEFANO for further evaluation and treatment.
[2016-12-09] MEDS ORDERED: Aspirin TAB* 325 MG PO ONE (21:19)
[2016-12-09 21:40] LABS: Magnesium 1.9 mg/dL (1.9-2.7)
[2016-12-09 22:00] VITALS: BP 120/68
== END 2016-12-09 22:00 | disposition home or self-care (01) ==
LOC: ED 16:21
DX: R07.9 Chest pain, unspecified (principal); R00.2 Palpitations
CPT/HCPCS: 36415; 71010; 80053; 83605; 83735; 84484; 85025; 93005; 99283

== ENCOUNTER 2017-04-27 20:13 | Emergency (ER) | payer OTHER ==
[2017-04-27 20:23] VITALS: BP 143/55
[2017-04-27] MEDS ORDERED: Fluorescein Sodium TOPICAL* 1 MG TEST ONE (20:37)
[2017-04-27] MEDS ORDERED: Eye Irrigation Solution 30 ML BOTTLE ONE (20:38)
[2017-04-27] MEDS ORDERED: Tetracaine 0.5% OPTH.SOL 15ML* BTL ONE (20:38)
[2017-04-27] MEDS ORDERED: Erythromycin OPTH OINT* APPLIC OINT LEFT EYE ONE (20:46)
[2017-04-27] MEDS ORDERED: Erythromycin OPTH OINT* APPLIC OINT ONE (20:46)
[2017-04-27] MEDS ORDERED: Fluorescein Sodium TOPICAL* 1 MG TEST OPHTHALMIC ONE (20:47)
[2017-04-27] MEDS ORDERED: Tetracaine 0.5% OPTH.SOL 4 ML* 1 DROP BTL LEFT EYE ONE (20:47)
[2017-04-27] MEDS ORDERED: Acetaminop/Codeine 30 MG TAB* 1 TAB (300 MG/30 MG) PO ONE (20:48)
--- NOTE | 2017-04-27 20:56 | ED ---
Throat Pain/Nasal Congestion - HPI Summary HPI Summary: 22 y/o male her c/o of right eye pain since 1 pm. He reports that he was cutting his lawn when something hit his eye. Since he has been having pain. He reports blurred vision earlier but not he has only pain. He has no other complaints. He is up to date in all vaccinations - History of Current Complaint Chief Complaint: UCEye Time Seen by Provider: 04/27/17 20:35 Hx Obtained From: Patient Onset/Duration: Sudden Onset Severity: Moderate Associated Signs And Symptoms: Positive: Negative - Epiglottits Risk Factors Epiglottis Risk Factors: Negative - Allergies/Home Medications Allergies/Adverse Reactions: Allergies Allergy/AdvReac Type Severity Reaction Status Date / Time Lansoprazole Allergy Diaphoresis Verified 12/09/16 18:17 Penicillins [PCN] Allergy Hives Verified 04/27/17 20:23 Morphine AdvReac Mild See Comment Verified 09/09/16 02:37 Home Medications: Home Medications Pantoprazole TAB (NF) [Protonix TAB (NF)] 40 mg PO DAILY 04/27/17 [History Confirmed 04/27/17] PMH/Surg Hx/FS Hx/Imm Hx Endocrine/Hematology History: Denies: Hx Anticoagulant Therapy, Hx Blood Disorders, Hx Diabetes Cardiovascular History: Denies: Hx Hypertension Respiratory History: Denies: Hx Asthma GI History: Reports: Hx Gastroesophageal Reflux Disease, Hx Hiatal Hernia Denies: Hx Cirrhosis, Hx Crohn's Disease, Hx Diverticulosis, Hx Gall Bladder Disease, Hx Gastrointestinal Bleed, Hx Irritable Bowel, Hx Obstructive Bowel History: Denies: Hx Renal Disease Neurological History: 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 - Surgical History Surgery Procedure, Year, and Place: hiatal hernia repair Aug 2016, fundliplication, foot Infectious Disease History: No Infectious Disease History: Denies: Traveled Outside the [place] in Last 30 Days - Family History Known Family History: Positive: Cardiac Disease - father - Social History Alcohol Use: None Hx Substance Use: No Substance Use Type: Reports: None Hx Tobacco Use: No Smoking Status (MU): Never Smoked Tobacco Review of Systems Constitutional: Negative Positive: Blurred Vision, Other - Eye pain ENT: Negative Cardiovascular: Negative Respiratory: Negative Gastrointestinal: Negative Genitourinary: Negative Musculoskeletal: Negative Skin: Negative Neurological: Negative Psychological: Normal All Other Systems Reviewed And Are Negative: Yes Physical Exam - Summary Physical Exam Summary: Vital signs: reviewed General: Patient is comfortable lying in stretcher with no signs of distress HEENT: right eye with some conjunctiva injection. Fluorecin Test: Positive fluorecin uptake in the right eye. Lungs: CTA B/L CVS: S1 & S2 present. No murmurs appreciated. ABDOMEN: Soft, non-tender. No signs of distention. No rebound no guarding, and no masses palpated. Bowel sounds are normal. EXTREMITIES: FROM in all major joints, no edema, no cyanosis or clubbing. NEURO: Alert and oriented x 3. No acute neurological deficits. Speech is normal and follows commands. SKIN: Dry and warm Triage Information Reviewed: Yes Vital Signs On Initial Exam: Initial Vitals Temp Pulse Resp BP Pulse Ox 98.9 F 81 18 143/55 100 04/27/17 20:18 04/27/17 20:18 04/27/17 20:18 04/27/17 20:18 04/27/17 20:18 Vital Signs Reviewed: Yes Diagnostics - Vital Signs Vital Signs Temp Pulse Resp BP Pulse Ox 04/27/17 20:18 98.9 F 81 18 143/55 100 - Laboratory Lab Statement: Any lab studies that have been ordered have been reviewed, and results considered in the medical decision making process. EENT Course/Dx - Course Assessment/Plan: 22 y/o male her c/o of right eye pain since 1 pm. He reports that he was cutting his lawn when something hit his eye. Since he has been having pain. He reports blurred vision earlier but not he has only pain. He has no other complaints. He is up to date in all vaccinations. Patient with corneal abrasion. Erythromycin ointment place in the right eye. He was given Tylenol # 3 for pain. He will f/u with ophthalmology. I discussed all the findings and test results with the patient. Patient was instructed to return to the emergency room immediately if any of the symptoms return or worsens. Plan of care was discussed with the patient and understands and agrees. All questions were answered at patient satisfaction. There were no further complaints or concerns. Lung exam before discharge: CTA B/L. Good air exchange. No wheezing or crackles heard. CVS: S1 and S2 present. No murmurs appreciated. Patient is alert and oriented x 3. Patient is hemodynamically stable. Patient will be discharged home with follow up zmt operator in the next 2-3 days - Differential Diagnoses Differential Diagnoses: Abrasion, Allergic Rhinitis, Conjunctivitis, Corneal Abrasion - Diagnoses Provider Diagnoses: Corneal abrasion Discharge - Discharge Plan Condition: Stable Disposition: HOME Prescriptions: HYDROcodone/ACETAMIN 5-325 MG* [[place] 5-325 TAB*] 1 tab PO Q6H PRN #10 tab MDD 4 PRN Reason: Pain Patient Education Materials: Corneal Abrasion (ED) Referrals: Zeina Willams NP [Primary Care Provider] - Severiano Joe MD [Medical Doctor] -
[2017-04-27] MEDS ORDERED: Eye Irrigation Solution 30 ML BOTTLE RIGHT EYE ONE (20:59)
== END 2017-04-27 21:13 | disposition home or self-care (01) ==
LOC: UCEAST 20:13
DX: S05.01XA Injury of conjunctiva and corneal abrasion without foreign body, right eye, initial encounter (principal); W20.8XXA Other cause of strike by thrown, projected or falling object, initial encounter; Y93.H9 Activity, other involving exterior property and land maintenance, building and construction; Y92.096 Garden or yard of other non-institutional residence as the place of occurrence of the external cause; K21.9 Gastro-esophageal reflux disease without esophagitis; G52.2 Disorders of vagus nerve; Z88.5 Allergy status to narcotic agent; Z88.0 Allergy status to penicillin; Z88.8 Allergy status to other drugs, medicaments and biological substances
CPT/HCPCS: 99213; A9270-GY; G0463

== ENCOUNTER 2017-08-22 23:40 | Emergency (ER) | payer OTHER ==
[2017-08-23 01:41] VITALS: BP 0/0
== END 2017-08-23 01:40 | disposition left against medical advice (07) ==
LOC: ED 23:40
DX: R68.84 Jaw pain (principal); Z53.21 Procedure and treatment not carried out due to patient leaving prior to being seen by health care provider

== ENCOUNTER 2017-12-05 23:47 | Emergency (ER) | payer OTHER ==
--- OUTSIDE RECORDS SUMMARY | 2017-12-05 23:59 | XMS REPORT ---
:1995 External Reference #:[id number] Author Organization Zuleyka Morillo DO, [facility] Address [address] [place] [address] Phone [phone] Care Team Providers Name Role Phone John Donnelly PA-C Care Team Information Software Build Engineer Unavailable Payers Type Date Identification Numbers Payment Provider Subscriber Commercial Policy Number: [id number] [facility] phi thorne PayID: [id number] [address] [place] [address] Problems Description No Information Social History Type Date Description Comments Marital Status Work Status Currently Working Smoking Patient has never smoked Allergies, Adverse Reactions, Alerts Description No Information Medications Description No Information Results Description No Information Procedures Description No Information Encounters Type Date Location Provider CPT E/M Dx Office Visit 11/19/2017 10:45a Main Office John Donnelly PA-C [id number] Plan of Care 11/19/2017 - JENNIFER [id number] Pain in left hipComments:Follow-up with Orthopedics tomorrow. Continue with ice and heat to area and alternate Tylenol and Ibuprofen. Will continue to monitor.AllFollow up:A total of (15 ) minutes were spent face to face time with the patient during this encounter and over 50 % of that time was spent on counseling and coordination of care. 1. Follow-up with [facility] tomorrow 2. CPE in 3 months or as needed Case reviewed with Dr. Morillo. Above instructions reviewed with the pt and pt understands and agrees.
[2017-12-06] MEDS ORDERED: Ketorolac INJ* 30 MG/ML 1 ML VIAL IM ONE (01:51)
[2017-12-06] MEDS ORDERED: Methocarbamol TAB* 500 MG PO ONE (01:51)
--- NOTE | 2017-12-06 01:53 | ED ---
Neck Pain - HPI Summary HPI Summary: 22M presents with left-sided neck pain for the past day. He states that he is unable to move his neck towards the left. He states it feels like stiffness. He states he gets muscle spasms with it. She hasn't taken anything for symptoms. He started ice and heat without relief. States massage makes it much worse. He has never had this before. Denies any injury. Denies any fevers. He denies any headache. He denies any photophobia. He denies any recent illness. - History of Current Complaint Chief Complaint: EDNeckComplaint Stated Complaint: NECK PAIN Time Seen by Provider: 12/06/17 01:43 Pain Intensity: 9 - Allergies/Home Medications Allergies/Adverse Reactions: Allergies Allergy/AdvReac Type Severity Reaction Status Date / Time lansoprazole Allergy Diaphoresis Verified 12/05/17 23:53 morphine Allergy stiff Verified 12/05/17 23:53 neck/GI upset peanut Allergy Swelling Verified 12/05/17 23:53 Penicillins Allergy Hives Verified 12/05/17 23:53 PMH/Surg Hx/FS Hx/Imm Hx Endocrine/Hematology History: Denies: Hx Anticoagulant Therapy, Hx Blood Disorders, Hx Diabetes Cardiovascular History: Denies: Hx Hypertension Respiratory History: Denies: Hx Asthma GI History: Reports: Hx Gastroesophageal Reflux Disease, Hx Hiatal Hernia Denies: Hx Cirrhosis, Hx Crohn's Disease, Hx Diverticulosis, Hx Gall Bladder Disease, Hx Gastrointestinal Bleed, Hx Irritable Bowel, Hx Obstructive Bowel History: Denies: Hx Renal Disease Neurological History: 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 - Surgical History Surgery Procedure, Year, and Place: hiatal hernia repair Aug 2016, fundliplication, foot Infectious Disease History: No Infectious Disease History: Denies: Traveled Outside the [place] in Last 30 Days - Family History Known Family History: Positive: Cardiac Disease - father - Social History Alcohol Use: None Hx Substance Use: No Substance Use Type: Reports: None Hx Tobacco Use: No Smoking Status (MU): Never Smoked Tobacco Review of Systems Negative: Fever Negative: Chest Pain Negative: Shortness Of Breath Positive: Myalgia - left-sided neck pain and stiffness All Other Systems Reviewed And Are Negative: Yes Physical Exam Triage Information Reviewed: Yes Vital Signs On Initial Exam: Initial Vitals Temp Pulse Resp BP Pulse Ox 99.5 F 90 16 162/98 98 12/05/17 23:48 12/05/17 23:48 12/05/17 23:48 12/05/17 23:48 12/05/17 23:48 Vital Signs Reviewed: Yes Appearance: Positive: Well-Appearing Skin: Positive: Warm, Dry Head/Face: Positive: Normal Head/Face Inspection Eyes: Positive: Normal, Conjunctiva Clear ENT: Positive: Pharynx normal Neck: Positive: Other: - No midline tenderness, tenderness over left sided neck Respiratory/Lung Sounds: Positive: Clear to Auscultation, Breath Sounds Present Cardiovascular: Positive: Normal, RRR Musculoskeletal: Positive: Limited @ - Turning towards left, Other - Good pulses , good strength in upper extremities, sensation grossly intact Neurological: Positive: Reflexes Intact - Biceps Psychiatric: Positive: Normal Diagnostics - Vital Signs Vital Signs Temp Pulse Resp BP Pulse Ox 12/05/17 23:48 99.5 F 90 16 162/98 98 - Laboratory Lab Statement: Any lab studies that have been ordered have been reviewed, and results considered in the medical decision making process. Neck Course/Dx - Course Course Of Treatment: 22M presents with left-sided neck pain for the past day. He states that he is unable to move his neck towards the left. He states it feels like stiffness. He states he gets muscle spasms with it. She hasn't taken anything for symptoms. He started ice and heat without relief. States massage makes it much worse. He has never had this before. Denies any injury. Denies any fevers. He denies any headache. He denies any photophobia. He denies any recent illness. On exam neurovascularly intact. No midline tenderness. Tenderness left-sided neck. Unable to turn towards left side. Will treat with Toradol and muscle relaxer. Patient appears to have torticollis. Told to continue ice and heat and massage area. Patient understands agrees the plan. - Diagnoses Differential Dx/HQI/PQRI: Positive: Sprain, Strain, Torticollis Provider Diagnoses: Neck pain Discharge - Sign-Out/Discharge Documenting (check all that apply): Discharge/Admit/Transfer - Discharge Plan Condition: Good Disposition: HOME Prescriptions: Methocarbamol TAB* [Robaxin 500 MG TAB*] 750 mg PO TID PRN #15 tab PRN Reason: Pain Patient Education Materials: Spasmodic Torticollis (ED) Referrals: Zuleyka Morillo DO [Primary Care Provider] - Additional Instructions: Take muscle relaxers three times a day Use ibuprofen or Tylenol for pain every 6 hours ice/heat area, move as much as possible Follow up with primary within 5 days Return to ED if develop any new or worsening symptoms - Billing Disposition and Condition Condition: GOOD Disposition: HOME
[2017-12-06 02:34] VITALS: BP 141/73
== END 2017-12-06 02:32 | disposition home or self-care (01) ==
LOC: ED 23:47
DX: M54.2 Cervicalgia (principal); Z88.5 Allergy status to narcotic agent; Z88.0 Allergy status to penicillin; Z88.3 Allergy status to other anti-infective agents
CPT/HCPCS: 96372; 99282; A9270-GY; J1885

== ENCOUNTER 2018-08-14 16:51 | Emergency (ER) | payer OTHER ==
--- NOTE | 2018-08-14 19:28 | UC ---
FLU HPI - HPI Summary HPI Summary: Onset of sore throat last night. Then woke up later with body aches, muscle pain, cough and chills. Has subjective fever. No flu shot this season. - History of Current Complaint Chief Complaint: UCGeneralIllness Stated Complaint: SORE THROAT, ACHES AND CHILLS Time Seen by Provider: 08/14/18 19:21 Hx Obtained From: Patient Onset/Duration: Gradual Onset Severity Currently: Moderate Severity Initially: Moderate Pain Intensity: 6 Pain Scale Used: 0-10 Numeric Associated Signs & Symptoms: Positive: Fever, Myalgia, Cough, Sore Throat, Nasal Congestion - Allergy/Home Medications Allergies/Adverse Reactions: Allergies Allergy/AdvReac Type Severity Reaction Status Date / Time peanut Allergy Swelling Verified 08/14/18 17:44 Penicillins Allergy Hives Verified 08/14/18 17:44 lansoprazole AdvReac Diaphoresis Verified 08/14/18 17:44 morphine AdvReac stiff Verified 08/14/18 17:44 neck/GI upset Home Medications: Home Medications NK [No Home Medications Reported] 08/14/18 [History Confirmed 08/14/18] PMH/Surg Hx/FS Hx/Imm Hx Previously Healthy: Yes Other History Of: Negative For: Anticoagulant Therapy - Surgical History Surgical History: Yes Surgery Procedure, Year, and Place: hiatal hernia repair Aug 2016, fundliplication, foot - Family History Known Family History: Positive: Cardiac Disease - father - Social History Alcohol Use: None Substance Use Type: None Smoking Status (MU): Never Smoked Tobacco Review of Systems All Other Systems Reviewed And Are Negative: Yes Constitutional: Positive: Fever, Chills, Fatigue ENT: Positive: Sore Throat, Nasal Discharge Respiratory: Positive: Cough Cardiovascular: Positive: Negative Gastrointestinal: Positive: Nausea Musculoskeletal: Positive: Arthralgia, Myalgia Neurological: Positive: Headache Physical Exam Triage Information Reviewed: Yes Appearance: No Pain Distress, Well-Nourished, Ill-Appearing - MILDLY, FATIGUED Vital Signs: Initial Vital Signs Temp 99.8 F 08/14/18 17:41 Pulse 104 08/14/18 17:41 Resp 18 08/14/18 17:41 BP 151/87 08/14/18 17:41 Pulse Ox 100 08/14/18 17:41 Laboratory Tests 08/14/18 19:35 Influenza A (Rapid) Negative Influenza B (Rapid) Negative Vital Signs Reviewed: Yes Eyes: Positive: Conjunctiva Clear ENT: Positive: Hearing grossly normal, Pharynx normal, TMs normal Neck: Positive: Supple, Nontender, No Lymphadenopathy Respiratory: Positive: No respiratory distress, No accessory muscle use, Other: - OCCASIONAL COARSE LUNG SOUNDS Cardiovascular: Positive: Tachycardia Abdomen Description: Positive: Soft Musculoskeletal: Positive: No Edema Neurological: Positive: Alert Psychological: Positive: Age Appropriate Behavior Skin: Negative: Rashes Flu Course/Dx - Course Course Of Treatment: FLU SWAB NEGATIVE. CHEST X-RAY OFFICIAL READ PENDING. WILL TREAT VIRAL SYNDROME WITH CONSERVATIVE MEASURES. PATIENT FEELS MUCH BETTER WITH TYLENOL ON BOARD. REST, HYDRATE. WILL CALL WITH RADIOLOGY REPORT. - Differential Dx/Diagnosis Provider Diagnosis: Acute viral syndrome Discharge - Sign-Out/Discharge Documenting (check all that apply): Patient Departure All imaging exams completed and their final reports reviewed: No - Discharge Plan Condition: Stable Disposition: HOME Patient Education Materials: Viral Syndrome (ED) Referrals: Zuleyka Morillo DO [Primary Care Provider] - If Needed Additional Instructions: FLU SWAB NEGATIVE. RADIOLOGY READ ON CHEST XRAY IS PENDING. YOUR SYMPTOMS ARE LIKELY VIRALLY MEDIATED AND SHOULD RESOLVE ON THEIR OWN WITH TIME. NO INDICATION FOR ANTIBIOTICS AT PRESENT. REST, HYDRATE, OTC MEDS NEEDED FOR FEVER AND DISCOMFORT. SEEK FOLLOW-UP IF YOU ARE NOT IMPROVING OVER THE NEXT 1- 2 WEEKS. - Billing Disposition and Condition Condition: STABLE Disposition: Home
[2018-08-14 19:47] LABS: Influenza A Molecular NEGATIVE (Negative); Influenza B Molecular NEGATIVE (Negative)
[2018-08-14] MEDS ORDERED: Acetaminophen TAB* 325 MG PO ONE (20:22)
--- NOTE | 2018-08-14 21:24 | UC ---
- Progress Note Progress Note: OFFICIAL RADIOLOGY REPORT REVIEWED. CHEST X-RAY UNREMARKABLE. PATIENT NOTIFIED PRIOR TO DEPARTURE. NO CHANGE IN MANAGEMENT. Course/Dx - Diagnoses Provider Diagnoses: Acute viral syndrome Discharge - Sign-Out/Discharge Documenting (check all that apply): Post-Discharge Follow Up All imaging exams completed and their final reports reviewed: Yes - Discharge Plan Condition: Stable Disposition: HOME Patient Education Materials: Viral Syndrome (ED) Referrals: Zuleyka Morillo DO [Primary Care Provider] - If Needed Additional Instructions: FLU SWAB NEGATIVE. RADIOLOGY READ ON CHEST XRAY IS PENDING. YOUR SYMPTOMS ARE LIKELY VIRALLY MEDIATED AND SHOULD RESOLVE ON THEIR OWN WITH TIME. NO INDICATION FOR ANTIBIOTICS AT PRESENT. REST, HYDRATE, OTC MEDS NEEDED FOR FEVER AND DISCOMFORT. SEEK FOLLOW-UP IF YOU ARE NOT IMPROVING OVER THE NEXT 1- 2 WEEKS. - Billing Disposition and Condition Condition: STABLE Disposition: Home
[2018-08-14 21:33] VITALS: BP 147/80
== END 2018-08-14 21:30 | disposition home or self-care (01) ==
LOC: UCEAST 16:51
DX: B34.9 Viral infection, unspecified (principal); Z88.0 Allergy status to penicillin; Z88.8 Allergy status to other drugs, medicaments and biological substances; Z88.5 Allergy status to narcotic agent; Z91.010 Allergy to peanuts
CPT/HCPCS: 71046; 99212; A9270-GY; G0463

== ENCOUNTER 2018-12-09 15:10 | Emergency (ER) | payer OTHER ==
[2018-12-09] MEDS ORDERED: Clindamycin 600 MG IVPREMIX(* 600 MG/50 ML SDV IV ONE (16:18)
[2018-12-09 16:35] LABS: ABS Basophils 0.1 10^3/ul (0-0.2); ABS Eosinophils 0.1 10^3/ul (0-0.6); ABS Lymphocytes 1.7 10^3/ul (1.0-4.8); ABS Neutrophils 7.2 10^3/ul (1.5-7.7); Eosinophil % 0.9 %; Hematocrit 45 % (42-52); Hemoglobin 15.2 g/dL (14.0-18.0); Mean Corpuscular HGB Conc 34 g/dL (31-36); Mean Corpuscular Hemoglobin 29 pg (27-31); Mean Corpuscular Volume 85 fL (80-94); Mean Platelet Volume 8.3 fL (7.4-10.4); Platelet Count 208 10^3/uL (150-450); Red Blood Count 5.24 10^6 /uL (4.18-5.48); Red Cell Distribution Width 14 % (10.5-15)
[2018-12-09 16:49] LABS: Albumin 4.5 g/dL (3.2-5.2); Albumin/Globulin Ratio 1.7 (1-3); BUN/Creatinine Ratio 9.3 (8-20); C Reactive Protein 78.93 mg/L (<8.01); Calcium 9.5 mg/dL (8.6-10.3); EGFR Non-African American 75.2 (>60); Globulin 2.7 g/dL (2-4); Potassium 3.8 mmol/L (3.5-5.0); Total Bilirubin 0.6 mg/dL (0.2-1.0); Total Protein 7.2 g/dL (6.4-8.9)
--- NOTE | 2018-12-09 17:04 | ED ---
Skin Complaint - HPI Summary HPI Summary: 23 year old male presents with infection of left foot since yesterday. Seen at [facility] and was placed on clindamycin. He is taken 2 doses. He saw his primary today and they started him on doxycycline. He states that he's been having spreading redness since. Denies any fevers or chills. He is not diabetic. He has no medical conditions. This has never happened before. He states that it started as a bug bite to the area. Is able to ambulate. 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 - Allergy/Home Medications Allergies/Adverse Reactions: Allergies Allergy/AdvReac Type Severity Reaction Status Date / Time peanut Allergy Swelling Verified 08/14/18 17:44 Penicillins Allergy Hives Verified 08/14/18 17:44 lansoprazole AdvReac Diaphoresis Verified 08/14/18 17:44 morphine AdvReac stiff Verified 08/14/18 17:44 neck/GI upset PMH/Surg Hx/FS Hx/Imm Hx Endocrine/Hematology History: Denies: Hx Anticoagulant Therapy, Hx Blood Disorders, Hx Diabetes Cardiovascular History: Denies: Hx Congestive Heart Failure, Hx Hypertension, Hx Pacemaker/ICD Respiratory History: Denies: Hx Asthma GI History: Reports: Hx Gastroesophageal Reflux Disease, Hx Hiatal Hernia Denies: Hx Cirrhosis, Hx Crohn's Disease, Hx Diverticulosis, Hx Gall Bladder Disease, Hx Gastrointestinal Bleed, Hx Irritable Bowel, Hx Obstructive Bowel History: Denies: Hx Renal Disease Neurological History: 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 - Surgical History Surgery Procedure, Year, and Place: hiatal hernia repair Aug 2016, fundliplication, foot Infectious Disease History: No Infectious Disease History: Denies: Traveled Outside the [place] in Last 30 Days - Family History Known Family History: Positive: Cardiac Disease - father - Social History Alcohol Use: None Hx Substance Use: No Substance Use Type: Reports: None Hx Tobacco Use: No Smoking Status (MU): Never Smoked Tobacco Review of Systems Negative: Fever Negative: Chest Pain Negative: Shortness Of Breath Positive: Rash All Other Systems Reviewed And Are Negative: Yes Physical Exam Triage Information Reviewed: Yes Vital Signs On Initial Exam: Initial Vitals Temp Pulse Resp BP Pulse Ox 97.9 F 79 20 142/99 100 12/09/18 15:13 12/09/18 15:13 12/09/18 15:13 12/09/18 15:13 12/09/18 15:13 Vital Signs Reviewed: Yes Appearance: Positive: Well-Appearing Skin: Positive: Warm, Dry, Other - blisters present on left foot with erythema and streaking up left leg Head/Face: Positive: Normal Head/Face Inspection Eyes: Positive: Normal ENT: Positive: Pharynx normal Respiratory/Lung Sounds: Positive: Clear to Auscultation, Breath Sounds Present Cardiovascular: Positive: Normal, RRR Musculoskeletal: Positive: Strength/ROM Intact - foot, Other - good pulses Neurological: Positive: Normal Psychiatric: Positive: Normal Diagnostics - Vital Signs Vital Signs Temp Pulse Resp BP Pulse Ox 12/09/18 15:13 97.9 F 79 20 142/99 100 - Laboratory Lab Results: Lab Results 12/09/18 12/09/18 12/09/18 Range/Units 16:13 16:13 16:13 WBC 10.0 (3.5-10.8) 10^3/uL RBC 5.24 (4.18-5.48) 10^6 /uL Hgb 15.2 (14.0-18.0) g/dL Hct 45 (42-52) % MCV 85 (80-94) fL MCH 29 (27-31) pg MCHC 34 (31-36) g/dL RDW 14 (10.5-15) % Plt Count 208 (150-450) 10^3/uL MPV 8.3 (7.4-10.4) fL Neut % (Auto) 71.8 % Lymph % (Auto) 17.0 % Cobb % (Auto) 9.7 % Eos % (Auto) 0.9 % Baso % (Auto) 0.6 % Absolute Neuts (auto) 7.2 (1.5-7.7) 10^3/ul Absolute Lymphs (auto) 1.7 (1.0-4.8) 10^3/ul Absolute Monos (auto) 1.0 H (0-0.8) 10^3/ul Absolute Eos (auto) 0.1 (0-0.6) 10^3/ul Absolute Basos (auto) 0.1 (0-0.2) 10^3/ul Absolute Nucleated RBC 0.0 10^3/ul Nucleated RBC % 0.0 Sodium 137 (135-145) mmol/L Potassium 3.8 (3.5-5.0) mmol/L Chloride 103 (101-111) mmol/L Carbon Dioxide 27 (22-32) mmol/L Anion Gap 7 (2-11) mmol/L BUN 11 (6-24) mg/dL Creatinine 1.18 H (0.67-1.17) mg/dL Est GFR ( Amer) 91.0 (>60) Est GFR (Non-Af Amer) 75.2 (>60) BUN/Creatinine Ratio 9.3 (8-20) Glucose 102 H (70-100) mg/dL Lactic Acid 0.8 (0.5-2.0) mmol/L Calcium 9.5 (8.6-10.3) mg/dL Total Bilirubin 0.60 (0.2-1.0) mg/dL AST 19 (13-39) U/L ALT 27 (7-52) U/L Alkaline Phosphatase 55 (34-104) U/L C-Reactive Protein 78.93 H (<8.01) mg/L Total Protein 7.2 (6.4-8.9) g/dL Albumin 4.5 (3.2-5.2) g/dL Globulin 2.7 (2-4) g/dL Albumin/Globulin Ratio 1.7 (1-3) Result Diagrams: 12/09/18 16:13 12/09/18 16:13 Lab Statement: Any lab studies that have been ordered have been reviewed, and results considered in the medical decision making process. Re-Evaluation - Re-Evaluation First Eval Re-Evaluation Time: 18:38 Change: Unchanged Comment: Patient completed his IV abx. Afebrile. VSS. States feels about the same but would like to go home and continue his oral antibiotics at home. He was also given a dose of ketoralac with minimal relief in pain. Will give him a dose of oxycodone-acetaminophen 5 mg-325 mg prior to discharge and provide him with a short course to use at home. States he has taken this in the past without problems. I have directed him to continue with his oral antibiotics as previous directed. He is to follow up with his PCP in 2 days for recheck. Anticipatory guidance and warning symptoms were reviewed with the patient. Verbalizes understanding and agrees with plan of care. Course/Dx - Course Course Of Treatment: 23 year old male presents with infection of left foot since yesterday. Seen at [facility] and was placed on clindamycin. He is taken 2 doses. He saw his primary today and they started him on doxycycline. He states that he's been having spreading redness since. Denies any fevers or chills. He is not diabetic. He has no medical conditions. This has never happened before. He states that it started as a bug bite to the area. Is able to ambulate. On exam vitals normal. White blood count normal. CRP elevated. Cellulitis extending up the left foot. patient will be signed out to [facility] pending antibiotics for dispo. - Differential Diagnoses - Skin Complaint Differential Diagnoses: Abscess, Cellulitis, Contact Dermatitis - Diagnoses Provider Diagnoses: Cellulitis of left foot Discharge - Sign-Out/Discharge Documenting (check all that apply): Sign-Out Patient Signing out patient TO: Chirs Becerra Patient Received Moderate/Deep Sedation with Procedure: No - Discharge Plan Condition: Stable Disposition: HOME Prescriptions: oxyCODONE/Acetamin 5/325 MG* [Percocet 5/325 TAB*] 1 tab PO Q6H PRN #12 tab MDD 4 PRN Reason: Severe Pain Patient Education Materials: Cellulitis (ED) Referrals: Arnold Sykes MD [Primary Care Provider] - 2 Days Additional Instructions: You received a dose of IV clindamycin in the ER today as well as an anti- inflammatory pain medication called ketorolac. Do not take any other anti- inflammatory medication such as ibuprofen (Advil, Motrin), naproxen (Aleve), or aspirin for at least 8 hours after you've receiving the medication. Continue to use the ibuprofen as directed as needed for pain. I will provide you with a short course of narcotic pain medicati called Percocet. You may take 1 tablet every 6 hours as needed for severe pain. We gave you a dose at discharge. Continue taking her antibiotics as previously directed. Follow-up with your primary care provider in 2 days for a recheck of the foot. Return to the emergency room if you have fever greater than 100.5 F, have severe pain that is not managed with the pain medication, increased redness or swelling, or any worsening of symptoms. - Billing Disposition and Condition Condition: STABLE Disposition: Home
[2018-12-09] MEDS ORDERED: Ketorolac INJ* 30 MG/ML 1 ML VIAL IV PUSH ONE (17:45)
[2018-12-09 18:22] VITALS: BP 134/79
[2018-12-09] MEDS ORDERED: oxyCODONE/Acetamin 5/325 MG* TAB PO ONE (18:37)
== END 2018-12-09 19:01 | disposition home or self-care (01) ==
LOC: ED 15:10
DX: L03.116 Cellulitis of left lower limb (principal); Z88.5 Allergy status to narcotic agent; Z88.0 Allergy status to penicillin; Z88.8 Allergy status to other drugs, medicaments and biological substances
CPT/HCPCS: 36415; 80053; 83605; 85025; 86140; 87040; 96365; 96366; 96375; 99282; A9270-GY; J1885

== ENCOUNTER 2018-12-10 13:07 | Inpatient (IN) | payer OTHER ==
[2018-12-10] MEDS ORDERED: Clindamycin 600 MG IVPREMIX(* 600 MG/50 ML SDV IV ONE (13:38)
[2018-12-10] MEDS ORDERED: NS 0.9% 1000 ML** 2,000 ML IV ONE (13:39)
[2018-12-10] MEDS ORDERED: Ketorolac INJ* 30 MG/ML 1 ML VIAL IV PUSH ONE ×2 (13:39→17:43)
--- NOTE | 2018-12-10 13:53 | ED ---
Skin Complaint - HPI Summary HPI Summary: 23-year-old male presents with worsening cellulitis on the left foot for past two days. He was seen at [facility] 2 days ago. He was seen here yesterday and had doxycycline had on by his primary. He states he has fever and chills this morning. He went to his primary today and they told him to come here. He states that the little blisters on his foot have been draining clear fluid. He has never had this before. Denies any history of MRSA. Has no medical conditions. outland was drawn on his foot and the erythema has extended passed the line. He states he's been elevated the extremity. He states he's been having extreme pain. 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 - Allergy/Home Medications Allergies/Adverse Reactions: Allergies Allergy/AdvReac Type Severity Reaction Status Date / Time peanut Allergy Swelling Verified 08/14/18 17:44 Penicillins Allergy Hives Verified 08/14/18 17:44 lansoprazole AdvReac Diaphoresis Verified 08/14/18 17:44 morphine AdvReac stiff Verified 08/14/18 17:44 neck/GI upset Home Medications: Home Medications Clindamycin HCl 300 mg PO Q6HR 12/10/18 [History Confirmed 12/10/18] Ibuprofen TAB* [Motrin TAB* 600 MG] 600 mg PO Q8H PRN 12/10/18 [History Confirmed 12/10/18] Lactobacillus Acidophilus* [Culturelle*] 1 cap PO DAILY 12/10/18 [History Confirmed 12/10/18] PMH/Surg Hx/FS Hx/Imm Hx Endocrine/Hematology History: Denies: Hx Anticoagulant Therapy, Hx Blood Disorders, Hx Diabetes Cardiovascular History: Denies: Hx Congestive Heart Failure, Hx Hypertension, Hx Pacemaker/ICD Respiratory History: Denies: Hx Asthma GI History: Reports: Hx Gastroesophageal Reflux Disease, Hx Hiatal Hernia Denies: Hx Cirrhosis, Hx Crohn's Disease, Hx Diverticulosis, Hx Gall Bladder Disease, Hx Gastrointestinal Bleed, Hx Irritable Bowel, Hx Obstructive Bowel History: Denies: Hx Renal Disease Neurological History: 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 - Surgical History Surgery Procedure, Year, and Place: hiatal hernia repair Aug 2016, fundliplication, foot Infectious Disease History: No Infectious Disease History: Denies: Traveled Outside the [place] in Last 30 Days - Family History Known Family History: Positive: Cardiac Disease - father - Social History Alcohol Use: None Hx Substance Use: No Substance Use Type: Reports: None Hx Tobacco Use: No Smoking Status (MU): Never Smoked Tobacco Review of Systems Positive: Fever, Chills Negative: Chest Pain Negative: Shortness Of Breath Positive: Rash All Other Systems Reviewed And Are Negative: Yes Physical Exam Triage Information Reviewed: Yes Vital Signs On Initial Exam: Initial Vitals Temp Pulse Resp BP Pulse Ox 98.2 F 97 20 150/104 99 12/10/18 13:11 12/10/18 13:11 12/10/18 13:11 12/10/18 13:11 12/10/18 13:11 Vital Signs Reviewed: Yes Appearance: Positive: Well-Appearing Skin: Positive: Other - blister like lesions on top of left foot, erythema down left foot Head/Face: Positive: Normal Head/Face Inspection Eyes: Positive: Normal, Conjunctiva Clear ENT: Positive: Pharynx normal Respiratory/Lung Sounds: Positive: Clear to Auscultation, Breath Sounds Present Cardiovascular: Positive: Normal, RRR Musculoskeletal: Positive: Limited @ - toes due to swelling, Other - good pulses Neurological: Positive: Normal Psychiatric: Positive: Normal Diagnostics - Vital Signs Vital Signs Temp Pulse Resp BP Pulse Ox 12/10/18 13:38 99 12/10/18 13:11 98.2 F 97 20 150/104 99 - Laboratory Result Diagrams: 12/10/18 14:11 12/10/18 14:12 Lab Statement: Any lab studies that have been ordered have been reviewed, and results considered in the medical decision making process. Course/Dx - Course Course Of Treatment: 23-year-old male presents with worsening cellulitis on the left foot for past two days. He was seen at [facility] 2 days ago. He was seen here yesterday and had doxycycline had on by his primary. He states he has fever and chills this morning. He went to his primary today and they told him to come here. He states that the little blisters on his foot have been draining clear fluid. He has never had this before. Denies any history of MRSA. Has no medical conditions. outland was drawn on his foot and the erythema has extended passed the line. He states he's been elevated the extremity. He states he's been having extreme pain. on exam has blister like lesion on left foot with surrounding erythema that has progressed further than yesterday. wbc 11. crp 50. gave dose of clindamycin IV. discussed with hospitals and they will admit. - Differential Diagnoses - Skin Complaint Differential Diagnoses: Abscess, Cellulitis, Contact Dermatitis - Diagnoses Provider Diagnoses: Cellulitis Discharge - Sign-Out/Discharge Documenting (check all that apply): Patient Departure - Discharge Plan Condition: Good Disposition: ADMITTED TO [facility] Referrals: Arnold Sykes MD [Primary Care Provider] - - Billing Disposition and Condition Condition: GOOD Disposition: Admitted to [facility]
[2018-12-10 14:32] LABS: ABS Basophils 0.1 10^3/ul (0-0.2); ABS Eosinophils 0.1 10^3/ul (0-0.6); ABS Monocytes 1.3 10^3/ul (0-0.8); ABS Neutrophils 8.5 10^3/ul (1.5-7.7); Eosinophil % 0.8 %; Hematocrit 44 % (42-52); Hemoglobin 14.8 g/dL (14.0-18.0); Lymphocyte % 16.6 %; Mean Corpuscular HGB Conc 34 g/dL (31-36); Mean Corpuscular Hemoglobin 29 pg (27-31); Mean Corpuscular Volume 86 fL (80-94); Platelet Count 230 10^3/uL (150-450); Red Blood Count 5.12 10^6 /uL (4.18-5.48); Red Cell Distribution Width 14 % (10.5-15); White Blood Count 11.9 10^3/uL (3.5-10.8)
[2018-12-10 14:40] LABS: INR 0.93 (0.82-1.09)
[2018-12-10 14:47] LABS: Albumin 4.3 g/dL (3.2-5.2); Albumin/Globulin Ratio 1.6 (1-3); BUN/Creatinine Ratio 9.6 (8-20); C Reactive Protein 52.8 mg/L (<8.01); Calcium 9.3 mg/dL (8.6-10.3); EGFR African American 77.9 (>60); EGFR Non-African American 64.4 (>60); Globulin 2.7 g/dL (2-4); Total Bilirubin 0.4 mg/dL (0.2-1.0)
[2018-12-10] MEDS ORDERED: oxyCODONE/Acetamin 5/325 MG* TAB PO ONE (16:25)
[2018-12-10] MEDS ORDERED: Vancomycin(*) 2,000 MG in NS 0.9% 500 ML* 500 ML IVPB ONE (17:04)
[2018-12-10] MEDS ORDERED: Vancomycin per Pharmacy* NOTE FOLLOW UP SCH (18:00)
[2018-12-10] MEDS: Ibuprofen TAB* 600 MG PO PRN (19:58)
[2018-12-10] MEDS: oxyCODONE/Acetamin 5/325 MG* TAB PO PRN (19:58)
--- NOTE | 2018-12-10 20:06 | HP ---
CC: Dr. Sykes * HISTORY AND PHYSICAL: DATE OF ADMISSION: 12/10/18 PRIMARY CARE PROVIDER: Dr. Sykes. HEALTHCARE PROXY: He does not identify any at this time. CODE STATUS: Full. SOURCE OF INFORMATION: History obtained from interview with the patient, review of past medical records as well all discussion with the ER PA. RELIABILITY: Good. CHIEF COMPLAINT: Left lower foot swelling and erythema and pain. HISTORY OF PRESENT ILLNESS: This is a 23-year-old man, minimal past medical history, first developed what he thought was a bug bite on his left foot on , presented to [facility] [place], was started on clindamycin and discharged. Followed up with Dr. Sykes following day, was started on doxycycline in addition to the clindamycin secondary to increased redness in his left foot. He presented to the emergency room later that day after it was marked and was told to proceed to the emergency room if it expanded past the markings, which it did. In the emergency room on 12/09/18, he was given a dose of clindamycin IV. Again, the area was marked and was informed to return if it expands past that marking, which it again did by today and for this reason on 12/10/18 he presented back to the emergency room. He notes that he did have subjective fevers at home yesterday. Lab work done today. His left foot is incredibly painful. He has been ambulating with the crutch and has used Percocet 5/325 for pain relief with some relief. He has had no other episodes similar to this. PAST MEDICAL HISTORY: Includes CKD, GERD, hiatal hernia with repair 2006 as well as vagus nerve dysfunction status post injury while he was in the [employer] that was no longer an issue after his hiatal hernia was repaired. HOME MEDICATIONS: None except for currently Percocet and clindamycin for lower extremity cellulitis. FAMILY HISTORY: No CAD or CVA. SOCIAL HISTORY: No tobacco, alcohol or illicits. Currently employed. REVIEW OF SYSTEMS: As per HPI, otherwise all other systems negative. PHYSICAL EXAMINATION GENERAL: Obese gentleman, sitting up in bed, interacting, pleasant, in no apparent distress. VITAL SIGNS: 161/70, heart rate 84, respiratory rate is 20, 99% on room air, T- max 98.2 while in the emergency room today. HEENT: Oropharynx is clear. He has moist mucous membranes. LUNGS: Clear to auscultation. HEART: He has regular rate and rhythm. No murmurs, rubs or gallops. ABDOMEN: Soft, nontender, nondistended. EXTREMITIES: Warm, well perfused. His left lower extremity has an area of deep erythema over most prominently distal plantar aspect of his left foot with 2 small areas of apparent skin necrosis, oozing, serosanguineous fluid with more diffuse erythema extending up towards his ankle centrally and towards his ankle laterally as well as erythematous but less violaceous. No other areas of purulence except for the serosanguineous discharge overlying area just proximal to his toes, which are currently not involved with erythema. NEUROLOGIC: He is alert and oriented x3. His cranial nerves II through XII are intact. DIAGNOSTIC STUDIES/LAB DATA: Labs reviewed. White blood cell count is 11.9, increased from 10 yesterday. His creatinine is 1.35. Lactic acid is 1.3. His CRP is 52, decreased from 78.9 yesterday. ASSESSMENT AND PLAN: This is a 23-year-old man now on his third day with cellulitis of left foot, which has been expanding despite clindamycin. What we would expect is erythema to expand, I do believe this is rapidly expanding warranting hospital stay, broad-spectrum antibiotics for at least overnight especially this is overlying some of the small joints of his feet with an area draining leading for potential osteomyelitis. Start vancomycin 2000 mg now, then per Pharmacy. No additional fluids, Percocet p.o. as needed, ibuprofen p.o. as needed. Probiotic while on antibiotics. Ambulate ad anila. DVT risk assessment is 1, ambulate ad anila. [id number]/[facility] #: [id number] [facility]
[2018-12-10] MEDS: oxyCODONE TAB* 5 MG TAB PO PRN (21:57)
[2018-12-10] MEDS: Vancomycin(*) 1,000 MG in NS 0.9% 250 ML* 250 ML IVPB SCH (23:30)
[2018-12-11] MEDS: oxyCODONE/Acetamin 5/325 MG* TAB PO PRN ×2 (02:36→08:15)
[2018-12-11 02:42] LABS: Urine Appearance Cloudy; Urine Bacteria 1+ (Absent); Urine Bilirubin Negative (Negative); Urine Blood 2+ (Negative); Urine Color Yellow; Urine Glucose Negative (Negative); Urine Ketones Negative (Negative); Urine Nitrite Negative (Negative); Urine Protein Negative (Negative); Urine Red Blood Cell 3+(>10/hpf) (Absent); Urine Squamous Epithelial Cell Present (Absent); Urine Urobilinogen Negative (Negative); Urine White Blood Cell Trace(0-5/hpf) (Absent)
[2018-12-11] MEDS ORDERED: Polyethylene Glycol 3350* 17 GM PACKET PO PRN (02:52)
[2018-12-11] MEDS ORDERED: Morphine INJ* 2 MG/ML 1 ML SYRINGE (TWO MG - NEW SYRINGE VERSION) IV PRN (02:52)
[2018-12-11] MEDS ORDERED: Docusate CAP* 100 MG PO PRN (02:52)
[2018-12-11] MEDS ORDERED: oxyCODONE TAB* 5 MG TAB PO ONE (02:53)
[2018-12-11] MEDS: oxyCODONE TAB* 5 MG TAB PO PRN ×4 (05:28→22:33)
[2018-12-11] MEDS: Ibuprofen TAB* 600 MG PO PRN (05:28)
[2018-12-11] MEDS: Vancomycin(*) 1,000 MG in NS 0.9% 250 ML* 250 ML IVPB SCH ×3 (05:29→20:52)
[2018-12-11] MEDS: Lactobacillus Acidophilus* 1 TAB PO SCH (08:15)
[2018-12-11] MEDS ORDERED: Vancomycin Trough Check NOTE FOLLOW UP ONE (13:00)
--- NOTE | 2018-12-11 15:36 | PN ---
Subjective Date of Service: 12/11/18 Interval History: Pain in foot continues. Much worse when standing. Having trouble moving toes of left foot with swelling. Feels erythema is less red but pain increased and swelling increased Objective Active Medications: Acetaminophen (Tylenol Tab*) 975 mg PO Q6H PRN PRN Reason: PAIN OR TEMPERATURE Docusate Sodium (Colace Cap*) 100 mg PO DAILY PRN PRN Reason: CONSTIPATION Vancomycin HCl 1,000 mg/ (Sodium Chloride) 250 mls @ 166.667 mls/hr IVPB Q8H [facility] Ceftriaxone Sodium 1 gm/ (Sodium Chloride) 50 mls @ 200 mls/hr IVPB Q24H [facility] Ibuprofen (Motrin Tab*) 600 mg PO Q8H PRN PRN Reason: PAIN/INFLAMMATION Last Admin: 12/11/18 05:28 Dose: 600 mg Lactobacillus Rhamnosus (Lactobacillus Acidophilus*) 1 tab PO DAILY RUDDY Last Admin: 12/11/18 08:15 Dose: 1 tab Ondansetron HCl (Zofran Inj*) 4 mg IV Q4H PRN PRN Reason: NAUSEA/VOMITING Oxycodone HCl (Roxycodone Tab*) 10 mg PO Q6H PRN PRN Reason: PAIN Pharmacy Profile Note (Vancomycin Trough Check) 1 note FOLLOW UP 1230 ONE Stop: 12/13/18 12:31 Polyethylene Glycol/Electrolytes (Miralax*) 17 gm PO DAILY PRN PRN Reason: CONSTIPATION Vital Signs - 8 hr 12/11/18 12/11/18 12/11/18 08:00 08:15 09:51 Temperature Pulse Rate Respiratory 20 18 16 Rate Blood Pressure (mmHg) O2 Sat by Pulse 97 Oximetry 12/11/18 12/11/18 12/11/18 10:32 11:52 14:25 Temperature 97.7 F Pulse Rate 72 Respiratory 20 18 18 Rate Blood Pressure 156/93 (mmHg) O2 Sat by Pulse 97 Oximetry 12/11/18 14:27 Temperature 97.7 F Pulse Rate 72 Respiratory 22 Rate Blood Pressure 150/94 (mmHg) O2 Sat by Pulse 100 Oximetry Oxygen Devices in Use Now: None Appearance: nad Eyes: No Scleral Icterus, PERRLA Ears/Nose/Mouth/Throat: NL Teeth, Lips, Gums, Clear Oropharnyx Neck: NL Appearance and Movements; NL JVP, Trachea Midline Respiratory: Symmetrical Chest Expansion and Respiratory Effort, Clear to Auscultation Cardiovascular: RRR Abdominal: NL Sounds; No Tenderness; No Distention, No Hepatosplenomegaly Lymphatic: No Cervical Adenopathy Extremities: No Edema Skin: - - left foot with erytheam extending proximally to ankle and laterally to the malleolus, much less violacious today, improved Neurological: Alert and Oriented x 3 Result Diagrams: 12/10/18 14:11 12/10/18 14:12 Microbiology and Other Data: Microbiology 12/10/18 14:12 Aerobic Blood Culture - Preliminary Blood Venous No Growth Day 1 Anaerobic Blood Culture - Preliminary No Growth Day 1 12/10/18 14:12 Aerobic Blood Culture - Preliminary Blood Venous No Growth Day 1 Anaerobic Blood Culture - Preliminary No Growth Day 1 12/10/18 13:45 Skin and Soft Tissue MRSA/MSSA (PCR - Final Foot Left Mrsa Negative S.aureus Positive Gram Stain - Final Wound Culture - Preliminary Staphylococcus Aureus Strep Pyogenes (Grp A) Assess/Plan/Problems-Billing Assessment: 23 yo M p/w rapdily progressive left foot cellulitis - Patient Problems (1) Cellulitis Comment: MSSA and strep A from wound change Vanco to CTX 12/11 in afternoon Suspect home tomorrow
[2018-12-11] MEDS: cefTRIAXone(*) 1 GM in NS 0.9% 50 ML* 50 ML IVPB SCH (16:02)
[2018-12-11] MEDS: Acetaminophen TAB* 325 MG PO PRN (20:37)
[2018-12-11] MEDS: Ondansetron INJ* 2 MG/ML VIAL IV PRN (20:38)
[2018-12-12] MEDS: Vancomycin(*) 1,000 MG in NS 0.9% 250 ML* 250 ML IVPB SCH (05:03)
[2018-12-12] MEDS: Acetaminophen TAB* 325 MG PO PRN ×2 (05:07→15:50)
[2018-12-12] MEDS: oxyCODONE TAB* 5 MG TAB PO PRN ×2 (08:16→15:50)
[2018-12-12] MEDS: Lactobacillus Acidophilus* 1 TAB PO SCH (08:16)
[2018-12-12 08:48] LABS: ABS Basophils 0.1 10^3/ul (0-0.2); ABS Eosinophils 0.2 10^3/ul (0-0.6); ABS Lymphocytes 2.5 10^3/ul (1.0-4.8); ABS Monocytes 0.9 10^3/ul (0-0.8); ABS Neutrophils 5.8 10^3/ul (1.5-7.7); Hematocrit 43 % (42-52); Hemoglobin 14.9 g/dL (14.0-18.0); Lymphocyte % 26.2 %; Mean Corpuscular HGB Conc 34 g/dL (31-36); Mean Corpuscular Hemoglobin 29 pg (27-31); Mean Corpuscular Volume 86 fL (80-94); Mean Platelet Volume 8.1 fL (7.4-10.4); Nucleated Red Blood Cells % 0.2; Platelet Count 248 10^3/uL (150-450); Red Blood Count 5.08 10^6 /uL (4.18-5.48); Red Cell Distribution Width 14 % (10.5-15); White Blood Count 9.5 10^3/uL (3.5-10.8)
[2018-12-12 09:05] LABS: BUN/Creatinine Ratio 8.8 (8-20); C Reactive Protein 36.27 mg/L (<8.01); Calcium 9.3 mg/dL (8.6-10.3); EGFR African American 85.2 (>60); EGFR Non-African American 70.4 (>60); Potassium 4.1 mmol/L (3.5-5.0)
[2018-12-12] MEDS ORDERED: Ketorolac INJ* 15 MG/ML 1 ML VIAL IV PUSH ONE (10:05)
--- NOTE | 2018-12-12 14:25 | PN ---
Subjective Date of Service: 12/12/18 Interval History: c/o pain, burning in foot.fevers and chills overnight Objective Active Medications: Acetaminophen (Tylenol Tab*) 975 mg PO Q6H PRN PRN Reason: PAIN OR TEMPERATURE Last Admin: 12/12/18 05:07 Dose: 975 mg Docusate Sodium (Colace Cap*) 100 mg PO DAILY PRN PRN Reason: CONSTIPATION Ceftriaxone Sodium 1 gm/ (Sodium Chloride) 50 mls @ 200 mls/hr IVPB Q24H [facility]UDDY Last Admin: 12/11/18 16:02 Dose: 200 mls/hr Sodium Chloride (Ns 0.9% 1000 Ml) 1,000 mls @ 100 mls/hr IV PER RATE RUDDY Lactobacillus Rhamnosus (Lactobacillus Acidophilus*) 1 tab PO DAILY RUDDY Last Admin: 12/12/18 08:16 Dose: 1 tab Ondansetron HCl (Zofran Inj*) 4 mg IV Q4H PRN PRN Reason: NAUSEA/VOMITING Last Admin: 12/11/18 20:38 Dose: 4 mg Oxycodone HCl (Roxycodone Tab*) 10 mg PO Q6H PRN PRN Reason: PAIN Last Admin: 12/12/18 08:16 Dose: 10 mg Polyethylene Glycol/Electrolytes (Miralax*) 17 gm PO DAILY PRN PRN Reason: CONSTIPATION Vital Signs - 8 hr 12/12/18 12/12/18 12/12/18 08:16 08:46 10:43 Temperature 97.9 F 97.9 F Pulse Rate 69 70 Respiratory 16 16 20 Rate Blood Pressure 155/84 145/78 (mmHg) O2 Sat by Pulse 97 99 Oximetry Oxygen Devices in Use Now: None Eyes: No Scleral Icterus Ears/Nose/Mouth/Throat: NL Teeth, Lips, Gums Neck: NL Appearance and Movements; NL JVP Respiratory: Symmetrical Chest Expansion and Respiratory Effort, Clear to Auscultation Cardiovascular: NL Sounds; No Murmurs; No JVD Abdominal: NL Sounds; No Tenderness; No Distention Extremities: - - Edema present, Foot with demarcated erythema and swelling,warm to touch Neurological: Alert and Oriented x 3 Result Diagrams: 12/12/18 08:20 12/12/18 08:20 Microbiology and Other Data: Microbiology 12/10/18 14:12 Aerobic Blood Culture - Preliminary Blood Venous No Growth Day 1 Anaerobic Blood Culture - Preliminary No Growth Day 1 12/10/18 14:12 Aerobic Blood Culture - Preliminary Blood Venous No Growth Day 1 Anaerobic Blood Culture - Preliminary No Growth Day 1 12/10/18 13:45 Skin and Soft Tissue MRSA/MSSA (PCR - Final Foot Left Mrsa Negative S.aureus Positive Gram Stain - Final Wound Culture - Preliminary Staphylococcus Aureus Strep Pyogenes (Grp A) Assess/Plan/Problems-Billing Assessment: 23 yo M p/w rapdily progressive left foot cellulitis - Patient Problems (1) Cellulitis Current Visit: Yes Status: Acute Code(s): L03.90 - CELLULITIS, UNSPECIFIED SNOMED Code(s): 560339494 Comment: MSSA and strep A from wound Erysepelas appearing/cellulitis Triggered by bug bite No abscess to drain per clinical exam WBC and CRP improving on Ceftrixone Will continue Failed outpatient antibiotics twice (2) Metabolic syndrome Current Visit: Yes Status: Acute Code(s): E88.81 - METABOLIC SYNDROME SNOMED Code(s): 527431847 Comment: Will check hbA1c to eval if diabetes causing poor wound healing Counselled on weight loss (3) ROBERT (acute kidney injury) Current Visit: Yes Status: Acute Code(s): N17.9 - ACUTE KIDNEY FAILURE, UNSPECIFIED SNOMED Code(s): 14281026 Comment: Mild Improving with IVF
[2018-12-12] MEDS: cefTRIAXone(*) 1 GM in NS 0.9% 50 ML* 50 ML IVPB SCH (15:15)
[2018-12-12] MEDS: NS 0.9% 1000 ML** 1,000 ML IV SCH (15:23)
[2018-12-12] MEDS: Ondansetron INJ* 2 MG/ML VIAL IV PRN ×2 (15:33→22:29)
[2018-12-13] MEDS ORDERED: diPHENhydraMINE IV* 50 MG/ML 1 ml VIAL (BENADRYL) IV ONE (02:04)
[2018-12-13] MEDS ORDERED: Metoclopramide IV* 5 MG/ML 2 ML VIAL IV PRN (02:04)
[2018-12-13] MEDS ORDERED: Metoclopramide IV* 5 MG/ML 2 ML VIAL IV ONE (02:10)
[2018-12-13] MEDS: NS 0.9% 1000 ML** 1,000 ML IV SCH ×3 (02:26→22:59)
[2018-12-13] MEDS: Ondansetron INJ* 2 MG/ML VIAL IV PRN ×2 (02:35→20:13)
[2018-12-13] MEDS: oxyCODONE TAB* 5 MG TAB PO PRN ×3 (04:22→15:54)
[2018-12-13] MEDS: Acetaminophen TAB* 325 MG PO PRN ×4 (04:22→20:09)
[2018-12-13 07:58] LABS: ABS Eosinophils 0.2 10^3/ul (0-0.6); ABS Lymphocytes 2.4 10^3/ul (1.0-4.8); ABS Monocytes 0.8 10^3/ul (0-0.8); ABS Neutrophils 4.9 10^3/ul (1.5-7.7); Eosinophil % 2.7 %; Hematocrit 42 % (42-52); Hemoglobin 14.2 g/dL (14.0-18.0); Lymphocyte % 28.7 %; Mean Corpuscular HGB Conc 34 g/dL (31-36); Mean Corpuscular Hemoglobin 29 pg (27-31); Mean Corpuscular Volume 85 fL (80-94); Nucleated Red Blood Cells % 0.1; Platelet Count 231 10^3/uL (150-450); Red Blood Count 4.92 10^6 /uL (4.18-5.48); Red Cell Distribution Width 14 % (10.5-15); White Blood Count 8.3 10^3/uL (3.5-10.8)
[2018-12-13] MEDS: Lactobacillus Acidophilus* 1 TAB PO SCH (08:03)
[2018-12-13 08:07] LABS: BUN/Creatinine Ratio 10.2 (8-20); C Reactive Protein 25.28 mg/L (<8.01); Calcium 9.1 mg/dL (8.6-10.3); EGFR African American 82.9 (>60); EGFR Non-African American 68.5 (>60); Potassium 4.5 mmol/L (3.5-5.0)
[2018-12-13] MEDS ORDERED: Vancomycin Trough Check NOTE FOLLOW UP ONE (12:30)
--- NOTE | 2018-12-13 14:39 | PN ---
Subjective Date of Service: 12/13/18 Interval History: Still c/o pain in the foot. Nausea+ Objective Active Medications: Acetaminophen (Tylenol Tab*) 975 mg PO Q6H PRN PRN Reason: PAIN OR TEMPERATURE Last Admin: 12/13/18 14:06 Dose: 975 mg Ceftriaxone Sodium 1 gm/ (Sodium Chloride) 50 mls @ 200 mls/hr IVPB Q24H [facility] Last Admin: 12/12/18 15:15 Dose: 200 mls/hr Sodium Chloride (Ns 0.9% 1000 Ml) 1,000 mls @ 100 mls/hr IV PER RATE [facility] Last Admin: 12/13/18 12:36 Dose: 100 mls/hr Lactobacillus Rhamnosus (Lactobacillus Acidophilus*) 1 tab PO DAILY [facility] Last Admin: 12/13/18 08:03 Dose: 1 tab Ondansetron HCl (Zofran Inj*) 4 mg IV Q4H PRN PRN Reason: NAUSEA/VOMITING Last Admin: 12/13/18 02:35 Dose: 4 mg Oxycodone HCl (Roxycodone Tab*) 10 mg PO Q6H PRN PRN Reason: PAIN Last Admin: 12/13/18 10:56 Dose: 10 mg Polyethylene Glycol/Electrolytes (Miralax*) 17 gm PO DAILY PRN PRN Reason: CONSTIPATION Vital Signs - 8 hr 12/13/18 12/13/18 12/13/18 07:46 08:00 10:56 Temperature 98.2 F Pulse Rate 68 Respiratory 18 18 18 Rate Blood Pressure 140/86 (mmHg) O2 Sat by Pulse 96 96 Oximetry 12/13/18 11:10 Temperature 97.9 F Pulse Rate 70 Respiratory 18 Rate Blood Pressure 143/81 (mmHg) O2 Sat by Pulse 97 Oximetry Oxygen Devices in Use Now: None Eyes: No Scleral Icterus Neck: NL Appearance and Movements; NL JVP Respiratory: Symmetrical Chest Expansion and Respiratory Effort, Clear to Auscultation Cardiovascular: NL Sounds; No Murmurs; No JVD, RRR Abdominal: NL Sounds; No Tenderness; No Distention Extremities: - - Pedal edema and swelling.Erythema in demarcated area improving. Neurological: Alert and Oriented x 3 Result Diagrams: 12/13/18 07:22 12/13/18 07:23 Microbiology and Other Data: Microbiology 12/10/18 14:12 Aerobic Blood Culture - Preliminary Blood Venous No Growth Day 1 Anaerobic Blood Culture - Preliminary No Growth Day 1 12/10/18 14:12 Aerobic Blood Culture - Preliminary Blood Venous No Growth Day 1 Anaerobic Blood Culture - Preliminary No Growth Day 1 12/10/18 13:45 Skin and Soft Tissue MRSA/MSSA (PCR - Final Foot Left Mrsa Negative S.aureus Positive Gram Stain - Final Wound Culture - Preliminary Staphylococcus Aureus Strep Pyogenes (Grp A) Assess/Plan/Problems-Billing Assessment: 23 yo M p/w rapdily progressive left foot cellulitis - Patient Problems (1) Cellulitis Current Visit: Yes Status: Acute Code(s): L03.90 - CELLULITIS, UNSPECIFIED SNOMED Code(s): 892026985 Comment: MSSA and strep A from wound Erysepelas appearing/cellulitis Triggered by bug bite No abscess to drain per clinical exam WBC and CRP improving on Ceftrixone Failed outpatient antibiotics twice Erythema improved and able to move toes a little better now Continue IV Ceftriaxone and if doing well, can be discharged tomorrow on PO abx (2) Metabolic syndrome Current Visit: Yes Status: Acute Code(s): E88.81 - METABOLIC SYNDROME SNOMED Code(s): 919610665 Comment: Will check hbA1c to eval if diabetes causing poor wound healing Counselled on weight loss (3) ROBERT (acute kidney injury) Current Visit: Yes Status: Acute Code(s): N17.9 - ACUTE KIDNEY FAILURE, UNSPECIFIED SNOMED Code(s): 37832616 Comment: Mild Improving with IVF Increased Cr also in the setting of Increased muscle mass
[2018-12-13] MEDS: cefTRIAXone(*) 1 GM in NS 0.9% 50 ML* 50 ML IVPB SCH (15:51)
[2018-12-14] MEDS: Ondansetron INJ* 2 MG/ML VIAL IV PRN ×3 (00:09→19:56)
[2018-12-14] MEDS: oxyCODONE TAB* 5 MG TAB PO PRN ×4 (01:33→20:36)
[2018-12-14 07:50] LABS: ABS Basophils 0.1 10^3/ul (0-0.2); ABS Eosinophils 0.3 10^3/ul (0-0.6); ABS Lymphocytes 2.8 10^3/ul (1.0-4.8); ABS Monocytes 0.7 10^3/ul (0-0.8); ABS Neutrophils 4.4 10^3/ul (1.5-7.7); Eosinophil % 3.5 %; Hematocrit 43 % (42-52); Hemoglobin 14.6 g/dL (14.0-18.0); Lymphocyte % 34.4 %; Mean Corpuscular HGB Conc 34 g/dL (31-36); Mean Corpuscular Hemoglobin 29 pg (27-31); Mean Corpuscular Volume 85 fL (80-94); Mean Platelet Volume 7.8 fL (7.4-10.4); Nucleated Red Blood Cells % 0.1; Platelet Count 235 10^3/uL (150-450); Red Blood Count 5.08 10^6 /uL (4.18-5.48); Red Cell Distribution Width 13 % (10.5-15); White Blood Count 8.3 10^3/uL (3.5-10.8)
--- NOTE | 2018-12-14 07:58 | PN ---
Subjective Date of Service: 12/14/18 Interval History: HD # 3 on 12/14 23 yo M admitted for skin and soft tissue infection of foot failing outpt [facility] , found to have MSSA and Strep Overnight no acute events, VSS This morning seen ambulating the halls, he still has c/o pain, "terrible swelling" does not feel safe to go home, we spend some time discussing the nature of skin and soft tissue infections, his reassuring numbers, no e/o osteo per CRP, had imaging done at [facility] for fracture, was in follow up with Dr. Reza of ID in [place], can reach out tomorrow, assume avoiding Bactrim for CKD, though reasonable to try given Doxy/[facility] failure. Furthermore he reveals to me he did not really keep leg elevated at home, went to the gym frequently for weight lifting and enquiring when he can get back to that, we discuss rest and elevation is williamson to treatment. C/o foot pain, no fever chills rigors, tolerating diet and voiding. Objective Active Medications: Acetaminophen (Tylenol Tab*) 975 mg PO Q6H PRN PRN Reason: PAIN OR TEMPERATURE Last Admin: 12/13/18 20:09 Dose: 975 mg Ceftriaxone Sodium 1 gm/ (Sodium Chloride) 50 mls @ 200 mls/hr IVPB Q24H [facility] Last Admin: 12/13/18 15:51 Dose: 200 mls/hr Sodium Chloride (Ns 0.9% 1000 Ml) 1,000 mls @ 100 mls/hr IV PER RATE [facility] Last Admin: 12/13/18 22:59 Dose: 100 mls/hr Lactobacillus Rhamnosus (Lactobacillus Acidophilus*) 1 tab PO DAILY [facility] Last Admin: 12/13/18 08:03 Dose: 1 tab Ondansetron HCl (Zofran Inj*) 4 mg IV Q4H PRN PRN Reason: NAUSEA/VOMITING Last Admin: 12/14/18 00:09 Dose: 4 mg Oxycodone HCl (Roxycodone Tab*) 10 mg PO Q6H PRN PRN Reason: PAIN Last Admin: 12/14/18 01:33 Dose: 10 mg Polyethylene Glycol/Electrolytes (Miralax*) 17 gm PO DAILY PRN PRN Reason: CONSTIPATION Vital Signs - 8 hr 12/14/18 12/14/1812/14/19 01:33 02:54 04:00 Temperature 97.5 F Pulse Rate 71 Respiratory 20 20 16 Rate Blood Pressure 146/70 (mmHg) O2 Sat by Pulse 97 Oximetry 12/14/18 07:52 Temperature 98 F Pulse Rate 58 Respiratory 18 Rate Blood Pressure 115/65 (mmHg) O2 Sat by Pulse 98 Oximetry Oxygen Devices in Use Now: None Appearance: Obese man ambualting Ears/Nose/Mouth/Throat: NL Teeth, Lips, Gums Neck: NL Appearance and Movements; NL JVP Respiratory: Symmetrical Chest Expansion and Respiratory Effort, Clear to Auscultation Cardiovascular: RRR Abdominal: NL Sounds; No Tenderness; No Distention, No Hepatosplenomegaly Lymphatic: No Cervical Adenopathy Extremities: - - L foot with central swelling and erythema, no fluctance, minor scapping on top surface, clotted, decreased erythema from marking Skin: - - See ext Neurological: Alert and Oriented x 3 Result Diagrams: 12/14/18 07:34 12/14/18 07:34 Microbiology and Other Data: Microbiology 12/10/18 14:12 Aerobic Blood Culture - Preliminary Blood Venous No Growth Day 1 Anaerobic Blood Culture - Preliminary No Growth Day 1 12/10/18 14:12 Aerobic Blood Culture - Preliminary Blood Venous No Growth Day 1 Anaerobic Blood Culture - Preliminary No Growth Day 1 12/10/18 13:45 Skin and Soft Tissue MRSA/MSSA (PCR - Final Foot Left Mrsa Negative S.aureus Positive Gram Stain - Final Wound Culture - Preliminary Staphylococcus Aureus Strep Pyogenes (Grp A) Assess/Plan/Problems-Billing Assessment: 23 yo M admitted for skin and soft tissue infection of foot failing outpt [facility] , found to have MSSA and Strep - Patient Problems (1) Cellulitis Current Visit: Yes Status: Acute Code(s): L03.90 - CELLULITIS, UNSPECIFIED SNOMED Code(s): 431774599 Comment: -MSSA and strep A from wound -Erysepelas appearing/cellulitis -Triggered by bug bite -No abscess to drain per clinical exam,can do soft tissue US tomorrow, plan to d /c -WBC and CRP improving on Ceftrixone, change to PO bactrim Failed outpatient antibiotics twice Erythema improved and able to move toes a little better now Continue IV Ceftriaxone and if doing well, can be discharged tomorrow on PO abx (2) ROBERT (acute kidney injury) Current Visit: Yes Status: Acute Code(s): N17.9 - ACUTE KIDNEY FAILURE, UNSPECIFIED SNOMED Code(s): 00390718 Comment: -Mild -Improving with IVF, will d/c today -Increased Cr also in the setting of Increased muscle mass (3) Metabolic syndrome Current Visit: Yes Status: Acute Code(s): E88.81 - METABOLIC SYNDROME SNOMED Code(s): 574710999 Comment: -A1C 5.7 Counselled on weight loss (4) DVT prophylaxis Current Visit: Yes Status: Acute Code(s): Z29.9 - ENCOUNTER FOR PROPHYLACTIC MEASURES, UNSPECIFIED SNOMED Code(s): 920165465 (5) Full code status Current Visit: Yes Status: Acute Code(s): Z78.9 - OTHER SPECIFIED HEALTH STATUS SNOMED Code(s): 590102202 Status and Disposition: OBV, D/C by tomorrow
[2018-12-14] MEDS: Lactobacillus Acidophilus* 1 TAB PO SCH (08:02)
[2018-12-14] MEDS: NS 0.9% 1000 ML** 1,000 ML IV SCH (08:10)
[2018-12-14 08:14] LABS: BUN/Creatinine Ratio 9.8 (8-20); C Reactive Protein 14.36 mg/L (<8.01); EGFR African American 87.6 (>60); EGFR Non-African American 72.4 (>60); Potassium 4.4 mmol/L (3.5-5.0)
[2018-12-14] MEDS: Acetaminophen TAB* 325 MG PO PRN ×2 (11:58→17:21)
[2018-12-14] MEDS: cefTRIAXone(*) 1 GM in NS 0.9% 50 ML* 50 ML IVPB SCH (15:21)
[2018-12-14] MEDS: Sulfamethox/Trimethoprim DS 800/160* TAB PO SCH (20:36)
[2018-12-14] MEDS ORDERED: hydrOXYzine HCL TAB* 25 MG PO PRN (21:54)
[2018-12-15 06:32] LABS: ABS Basophils 0.1 10^3/ul (0-0.2); ABS Eosinophils 0.3 10^3/ul (0-0.6); ABS Lymphocytes 2.6 10^3/ul (1.0-4.8); ABS Monocytes 0.7 10^3/ul (0-0.8); ABS Neutrophils 4.8 10^3/ul (1.5-7.7); Eosinophil % 3.8 %; Hematocrit 44 % (42-52); Hemoglobin 14.8 g/dL (14.0-18.0); Lymphocyte % 30.9 %; Mean Corpuscular HGB Conc 34 g/dL (31-36); Mean Corpuscular Hemoglobin 29 pg (27-31); Mean Corpuscular Volume 85 fL (80-94); Mean Platelet Volume 7.6 fL (7.4-10.4); Nucleated Red Blood Cells % 0.1; Platelet Count 254 10^3/uL (150-450); Red Blood Count 5.12 10^6 /uL (4.18-5.48); Red Cell Distribution Width 14 % (10.5-15); White Blood Count 8.6 10^3/uL (3.5-10.8)
[2018-12-15 06:47] LABS: BUN/Creatinine Ratio 11.4 (8-20); C Reactive Protein 10.8 mg/L (<8.01); Calcium 9.4 mg/dL (8.6-10.3); EGFR Non-African American 66.1 (>60); Potassium 4.7 mmol/L (3.5-5.0)
--- NOTE | 2018-12-15 07:23 | PN ---
Subjective Date of Service: 12/15/18 Interval History: HD # 4 on 12/15 23 yo M admitted for skin and soft tissue infection of foot failing outpt [facility] , found to have MSSA and Strep Overnight no acute events, VSS->apparently had allergic rxn to Bactrim (My face got itchy) he adamantly denies retrial this AM This morning eating breakfast, did get US, awaiting results and has no other complaints, eager to go home, needs work notes Objective Active Medications: Acetaminophen (Tylenol Tab*) 975 mg PO Q6H PRN PRN Reason: PAIN OR TEMPERATURE Last Admin: 12/14/18 17:21 Dose: 975 mg Hydroxyzine HCl (Atarax Tab*) 25 mg PO Q6H PRN PRN Reason: .ITCHING Last Admin: 12/14/18 22:27 Dose: 25 mg Lactobacillus Rhamnosus (Lactobacillus Acidophilus*) 1 tab PO DAILY [facility] Last Admin: 12/14/18 08:02 Dose: 1 tab Ondansetron HCl (Zofran Inj*) 4 mg IV Q4H PRN PRN Reason: NAUSEA/VOMITING Last Admin: 12/14/18 19:56 Dose: 4 mg Oxycodone HCl (Roxycodone Tab*) 10 mg PO Q6H PRN PRN Reason: PAIN Last Admin: 12/14/18 20:36 Dose: 10 mg Polyethylene Glycol/Electrolytes (Miralax*) 17 gm PO DAILY PRN PRN Reason: CONSTIPATION Trimethoprim/Sulfamethoxazole (Bactrim Ds 800/160 Tab*) 1 tab PO BID [facility] Last Admin: 12/14/18 20:36 Dose: 1 tab Vital Signs - 8 hr 12/14/18 12/15/18 12/15/18 23:52 00:45 03:19 Temperature 98.1 F 97.9 F Pulse Rate 72 55 Respiratory 18 16 18 Rate Blood Pressure 151/74 132/68 (mmHg) O2 Sat by Pulse 96 97 Oximetry Oxygen Devices in Use Now: None Appearance: Pleasant man eating breakfast Eyes: No Scleral Icterus Ears/Nose/Mouth/Throat: NL Teeth, Lips, Gums, Clear Oropharnyx Neck: NL Appearance and Movements; NL JVP Respiratory: Symmetrical Chest Expansion and Respiratory Effort Cardiovascular: NL Sounds; No Murmurs; No JVD, RRR Abdominal: NL Sounds; No Tenderness; No Distention, No Hepatosplenomegaly Lymphatic: No Cervical Adenopathy Extremities: - - Improved erythema, mild swelling to mid dorsum Skin: - - See above Neurological: Alert and Oriented x 3 Result Diagrams: 12/15/18 06:20 12/15/18 06:20 Microbiology and Other Data: Microbiology 12/10/18 14:12 Aerobic Blood Culture - Preliminary Blood Venous No Growth Day 1 Anaerobic Blood Culture - Preliminary No Growth Day 1 12/10/18 14:12 Aerobic Blood Culture - Preliminary Blood Venous No Growth Day 1 Anaerobic Blood Culture - Preliminary No Growth Day 1 12/10/18 13:45 Skin and Soft Tissue MRSA/MSSA (PCR - Final Foot Left Mrsa Negative S.aureus Positive Gram Stain - Final Wound Culture - Preliminary Staphylococcus Aureus Strep Pyogenes (Grp A) Assess/Plan/Problems-Billing Assessment: 23 yo M admitted for skin and soft tissue infection of foot failing outpt [facility] , found to have MSSA and Strep - Patient Problems (1) Cellulitis Current Visit: Yes Status: Acute Code(s): L03.90 - CELLULITIS, UNSPECIFIED SNOMED Code(s): 437485360 Comment: -MSSA and strep A from wound -Erysepelas appearing/cellulitis -Triggered by bug bite -No abscess to drain per clinical exam,pendign US, plan to d/c -WBC and CRP improving on Ceftrixone, change to PO Keflex Failed outpatient antibiotics twice Erythema improved and able to move toes a little better now Continue IV Ceftriaxone and if doing well, can be discharged tomorrow on PO abx (2) ROBERT (acute kidney injury) Current Visit: Yes Status: Acute Code(s): N17.9 - ACUTE KIDNEY FAILURE, UNSPECIFIED SNOMED Code(s): 95970818 Comment: -Mild -DC IVF -Increased Cr also in the setting of Increased muscle mass (3) Metabolic syndrome Current Visit: Yes Status: Acute Code(s): E88.81 - METABOLIC SYNDROME SNOMED Code(s): 975375431 Comment: -A1C 5.7 Counselled on weight loss (4) DVT prophylaxis Current Visit: Yes Status: Acute Code(s): Z29.9 - ENCOUNTER FOR PROPHYLACTIC MEASURES, UNSPECIFIED SNOMED Code(s): 824708205 Comment: -Low risk (5) Full code status Current Visit: Yes Status: Acute Code(s): Z78.9 - OTHER SPECIFIED HEALTH STATUS SNOMED Code(s): 745915470 Status and Disposition: Inopatient, D/C
[2018-12-15] MEDS: Lactobacillus Acidophilus* 1 TAB PO SCH (08:29)
[2018-12-15] MEDS: oxyCODONE TAB* 5 MG TAB PO PRN ×2 (08:29→15:05)
[2018-12-15] MEDS: Cephalexin CAP* 500 MG PO SCH ×2 (09:48→13:10)
[2018-12-15] MEDS: Sulfamethox/Trimethoprim DS 800/160* TAB PO SCH (11:25)
[2018-12-15] MEDS: Acetaminophen TAB* 325 MG PO PRN (11:38)
[2018-12-15 12:31] VITALS: BP 137/68
--- NOTE | 2018-12-15 13:18 | DS ---
CC: Dr. Sykes; Dr. Tolentino DISCHARGE SUMMARY: DATE OF ADMISSION: 12/10/18 DATE OF DISCHARGE: 12/15/18 PRIMARY CARE PROVIDER: Dr. Sykes. INFECTIOUS DISEASE: Dr. Chris Tolentino. PRIMARY DIAGNOSES: 1. Left foot skin soft tissue infection. 2. Cellulitis with MSSA and Strep on culture. SECONDARY DIAGNOSES: 1. Metabolic syndrome with A1c 5.7. 2. Obesity. MEDICATIONS ON DISCHARGE: 1. Keflex 500 mg p.o. t.i.d. for 10 days after discharge to complete 14 days of treatment starting on 12/10/18. 2. Ibuprofen 600 mg p.o. q.8 hours p.r.n. for pain. 3. Oxycodone 5/325 one tab p.o. q.6 hours p.r.n. for pain for a maximum of 3 days after discharge. The patient has been prescribed as prior to his admission. 4. Lactobacillus acidophilus one tab p.o. daily. Changes on medications include the discontinuation of: 1. Clindamycin. 2. Doxycycline. HISTORY OF PRESENT ILLNESS AND HOSPITAL COURSE: This is a 23-year-old male with above past medical history who presented to the emergency room on 12/10/18 with complaint of persistent left foot swelling, redness and pain in the setting of a bug bite on 12/08/18 that had initially itched and he had secondary skin and soft tissue infection with redness, pain and induration extending from the site. He was placed on doxycycline and clindamycin by his primary care provider, although he said that he had continued pain, redness and swelling despite oral antibiotics and thus he was instructed to come to the emergency room to get IV antibiotics. He did note in the emergency room that he had subjective fevers, although vital signs were stable. In the emergency room , he was admitted for observation for presumed outpatient failure of skin and soft tissue infection of left foot. His hospital course by problem list is as follows: 1. Skin and soft tissue consistent with non-purulent cellulitis of left foot. Patient had wound cultures done on admission that showed MSSA and Strep group A that was pansensitive for treatment. He was placed on IV ceftriaxone with good results and counseled to keep foot elevated with ice packs something that he was not doing prior to admission. He had significant improvement over the course of his hospital stay, although he still remains with redness and induration at the dorsum of the left foot on day of discharge. He did have an ultrasound done to evaluate for collection which was negative. He had mild leukocytosis on admission that resolved by day of discharge and CRP remained low initially at 36 and at 10.8 on day of discharge. 2. Increased creatinine. Patient had increased creatinine on admission that was mildly fluid responsive 1.25, 1.28, he was given IV fluids without significant changes. He may have elevated creatinine secondary to muscle mass, furthermore he takes supplements for weight lifting that may affect his creatinine levels, nonetheless he has excellent urine voiding with no complications. 3. Metabolic syndrome. The patient had mildly elevated blood glucose levels while here in the hospital and A1c was drawn to see if underlying diabetes was affecting his wound healing. He has mildly elevated hemoglobin A1c at 5.7 consistent with very early prediabetes. On day of discharge, the patient is ambulating, tolerating diet, tolerating oral antibiotics. 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 He is counseled to have very light duties, stay out of the gym, keep foot elevated and with ice and remain compliant with Keflex dosing 500 mg p.o. t.i.d. Patient can follow up with Infectious Disease if needed and he will return to primary care for post hospital followup and to monitor status of cellulitis. LABS ON DAY OF DISCHARGE: White blood cell count 8.6, hemoglobin 14.8, hematocrit 44 and platelets 254. BMP; sodium 139, potassium 4.4, chloride 105, carbon dioxide 28, BUN 12, creatinine 1.2, glucose of 97, CRP 10.8. Imaging done during this hospitalization include the soft tissue ultrasound of the left foot which shows edema but no fluid collection, no drainable abscess or foreign body and patent superficial veins. No consultations were done during this hospitalization, although the patient can follow up with Infectious Disease if needed. Culture data: Again MSSA and Strep group A were drawn from wound cultures on from left foot, sensitive to ampicillin/sulbactam cefazolin, thus should be covered by Keflex of note with resistance to clindamycin, erythromycin and doxycycline. Group A Strep which was sensitive to ceftriaxone, thus should be sensitive to Keflex. Because patient has PENICILLIN allergy, we are limited to antibiotic choices initially, that is how clindamycin and doxycycline were chosen to begin with. We did trial Bactrim given documented sensitivities, although the patient reported that he had all over face itching and was unable to tolerate Bactrim. Keflex was chosen secondary to patient's response to ceftriaxone, drug sensitivities and patient's toleration of the drug. If this fails, the next step would be to consider oral cefdinir as the third-generation cephalosporin and would complete a total of 14 days of treatment starting from hospitalization. ITEMS TO FOLLOW UP POSTDISCHARGE: Cellulitis. As per above, he has MSSA and group Strep A sensitive to cephalosporins. The patient has allergy to PENICILLIN and BACTRIM. If patient fails treatment, could consider doxycycline in addition to Keflex or upgrading to oral cefdinir as a third-generation cephalosporin. He improved significantly to IV ceftriaxone. DISPOSITION AT THE TIME OF DISCHARGE: Stable to return to home with work restrictions and instructions on compliance with antibiotics. His pharmacy was called prior to discharge to ensure that they have waiting prescription of Keflex. TIME SPENT: Thirty minutes was spent in the planning of this discharge with over half of that was spent directly at the bedside of the patient providing direct patient care. Plan of care was discussed with the patient and his family , they agreed and know when to return to the office. They will plan for a followup with Dr. Sykes within the next week. [id number]/[facility] #: [id number] JONATHAN
== END 2018-12-15 16:00 | disposition home or self-care (01) | DRG 603 ==
LOC: ED 13:07 → MED 17:06 → OBSVTOIN 12-12 10:04
PROVIDERS: ADMIT Internal Medicine; ATTEND Internal Medicine
DX: L03.116 Cellulitis of left lower limb (principal); Z68.41 Body mass index [BMI] 40.0-44.9, adult; N17.9 Acute kidney failure, unspecified; E88.81 Metabolic syndrome and other insulin resistance; E66.9 Obesity, unspecified; B95.0 Streptococcus, group A, as the cause of diseases classified elsewhere; M62.89 Other specified disorders of muscle; R73.03 Prediabetes; K21.9 Gastro-esophageal reflux disease without esophagitis; N18.9 Chronic kidney disease, unspecified; B95.61 Methicillin susceptible Staphylococcus aureus infection as the cause of diseases classified elsewhere; B95.5 Unspecified streptococcus as the cause of diseases classified elsewhere; Z88.0 Allergy status to penicillin; Z16.24 Resistance to multiple antibiotics; Z88.5 Allergy status to narcotic agent; Z88.8 Allergy status to other drugs, medicaments and biological substances; Z91.018 Allergy to other foods; Z82.49 Family history of ischemic heart disease and other diseases of the circulatory system
CPT/HCPCS: 36415; 80048; 80053; 80202; 81003; 81015; 83036; 83605; 85025; 85610; 85730; 86140; 87040; 87070; 87077; 87086; 87186; 87205; 87640; 87641; 99284; A9270-GY; G0378; J0696; J1200; J1885; J2405; J2765; J3370

== ENCOUNTER 2018-12-30 18:50 | Emergency (ER) | payer OTHER ==
[2018-12-30 19:14] VITALS: BP 138/78
--- NOTE | 2018-12-30 19:55 | UC ---
Hand/Wrist HPI - HPI Summary HPI Summary: 23-year-old male presents with complaints of left wrist pain. States he works at [employer] and was involved in an intervention and ended up falling to the ground and landing on an outstretched arm. Complains of pain and swelling to the distal left radius. Denies ecchymosis, numbness, or tingling. - History Of Current Complaint Chief Complaint: UCUpperExtremity Stated Complaint: WC-LEFT WRIST/FOREARM INJURY Time Seen by Provider: 12/30/18 19:24 Hx Obtained From: Patient Pain Intensity: 3 - Allergies/Home Medications Allergies/Adverse Reactions: Allergies Allergy/AdvReac Type Severity Reaction Status Date / Time metoclopramide Allergy Tachycardia Verified 12/30/18 19:08 peanut Allergy Swelling Verified 12/30/18 19:08 Penicillins Allergy Hives Verified 12/30/18 19:08 lansoprazole AdvReac Diaphoresis Verified 12/30/18 19:08 morphine AdvReac stiff Verified 12/30/18 19:08 neck/GI upset Home Medications: Home Medications NK [No Home Medications Reported] 12/30/18 [History Confirmed 12/30/18] PMH/Surg Hx/FS Hx/Imm Hx Previously Healthy: Yes - Denies significant PMH Other History Of: Negative For: Anticoagulant Therapy - Surgical History Surgical History: Yes Surgery Procedure, Year, and Place: hiatal hernia repair Aug 2016, fundliplication, foot - Family History Known Family History: Positive: Cardiac Disease - father - Social History Occupation: Employed Full-time Lives: With Family Alcohol Use: None Substance Use Type: None Smoking Status (MU): Never Smoked Tobacco - Immunization History Most Recent Influenza Vaccination: fall 2017 Most Recent Pneumonia Vaccination: never Review of Systems All Other Systems Reviewed And Are Negative: Yes Constitutional: Positive: Negative Skin: Negative: Bruising Respiratory: Positive: Negative Cardiovascular: Positive: Negative Gastrointestinal: Positive: Negative Genitourinary: Positive: Negative Motor: Negative: Weakness Neurovascular: Negative: Decreased Sensation Musculoskeletal: Positive: Other: - See HPI Neurological: Positive: Negative Is Patient Immunocompromised?: No Physical Exam - Summary Physical Exam Summary: GENERAL APPEARANCE: Well developed, well nourished, alert and cooperative, and appears to be in no acute distress. CARDIAC: Normal S1 and S2. No S3, S4 or murmurs. Rhythm is regular. There is no peripheral edema, cyanosis or pallor. Extremities are warm and well perfused. Capillary refill is less than 2 seconds. Peripheral pulses intact. LUNGS: Clear to auscultation without rales, rhonchi, wheezing or diminished breath sounds. ABDOMEN: Positive bowel sounds. Soft, nondistended, nontender. No guarding or rebound. No masses or hepatosplenomegally. MUSKULOSKELETAL: Normal muscular development. Normal gait. EXTREMITIES: Tenderness with mild edema over the distal left radius without gross deformity or ecchymosis. No snuffbox tenderness. Full ROM to the wrist. Circulation and sensation intact. SKIN: Skin normal color, texture and turgor with no lesions or eruptions. Triage Information Reviewed: Yes Vital Signs: Initial Vital Signs Temp 97.8 F 12/30/18 19:09 Pulse 97 12/30/18 19:09 Resp 16 12/30/18 19:09 BP 138/78 12/30/18 19:09 Pulse Ox 98 12/30/18 19:09 Vital Signs Reviewed: Yes Procedures - Splinting Left Upper Extremity Location: wrist Pre-Made Type: velcro Splint: wrist Pre-Proc Neuro Vasc Exam: normal Post-Proc Neuro Vasc Exam: normal Diagnostics - Radiology No standard instances Radiology Interpretation Completed By: ED Physician - No acute fracture or dislocation Hand/Wrist Course/Dx - Course Course Of Treatment: 23-year-old male presents with complaints of left wrist pain. States he works at [employer] and was involved in an intervention and ended up falling to the ground and landing on an outstretched arm. Complains of pain and swelling to the distal left radius. Denies ecchymosis, numbness, or tingling. Afebrile. Vital signs stable. Patient had tenderness with mild edema over the distal left radius without gross deformity or ecchymosis. No snuffbox tenderness. Full ROM to the wrist. Circulation and sensation intact. Pulmonary x-ray reading showed no acute fracture or dislocation. Patient was placed in a cockup wrist splint by the RN. Circulation sensation were intact pre- and post- application. Recommending conservative treatment for a left wrist sprain including [id number] analgesics and RICE. He is to follow-up with orthopedic surgery in 7 days if symptoms are not improving. Anticipatory guidance and warning symptoms are reviewed with the patient. Verbalizes understanding as a plan of care. - Differential Dx/Diagnosis Differential Diagnosis/HQI/PQRI: Contusion, Fracture, Sprain Provider Diagnosis: Sprain of left wrist Discharge - Sign-Out/Discharge Documenting (check all that apply): Patient Departure All imaging exams completed and their final reports reviewed: No - Discharge Plan Condition: Stable Disposition: HOME Patient Education Materials: Wrist Sprain (ED) Forms: *Work Release Referrals: Arnold Sykes MD [Primary Care Provider] - Marcial Navarrete MD [Medical Doctor] - Additional Instructions: The x-ray performed in the clinic today showed no evidence of a fracture. I suspect that you sprained the wrist. The x-ray report and reviewed by the radiologist tomorrow we will contact you if they see anything that we will change her plan of care. Rest the wrist as much as possible. Use the wrist splint that was applied in the clinic until you are pain free. Apply ice to the affected area for 15-20 minutes at least 4 times a day to help with the pain and swelling. Elevate the arm to help reduce swelling. Take acetaminophen (Tylenol) or ibuprofen (Advil, Motrin) according to directions as needed for pain. Follow up with orthopedic surgery in 7 days if symptoms do not improve. Call for appointment. Seek immediate medical attention if you have severe pain not managed with pain medication, you are unable to walk or bear any weight, develop numbness or tingling in the hand or fingers, or have any worsening of symptoms. - Billing Disposition and Condition Condition: STABLE Disposition: Home
--- NOTE | 2018-12-31 12:48 | UC ---
- Progress Note Progress Note: xray report left wrist : IMPRESSION: NO ACUTE OSSEOUS INJURY. IF SYMPTOMS PERSIST, RECOMMEND REPEAT IMAGING. Course/Dx - Diagnoses Provider Diagnoses: Sprain of left wrist Discharge - Sign-Out/Discharge Documenting (check all that apply): Patient Departure All imaging exams completed and their final reports reviewed: Yes - Discharge Plan Condition: Stable Disposition: HOME Patient Education Materials: Wrist Sprain (ED) Forms: *Work Release Referrals: Marcial Navarrete MD [Medical Doctor] - Arnold Sykes MD [Primary Care Provider] - Additional Instructions: The x-ray performed in the clinic today showed no evidence of a fracture. I suspect that you sprained the wrist. The x-ray report and reviewed by the radiologist tomorrow we will contact you if they see anything that we will change her plan of care. Rest the wrist as much as possible. Use the wrist splint that was applied in the clinic until you are pain free. Apply ice to the affected area for 15-20 minutes at least 4 times a day to help with the pain and swelling. Elevate the arm to help reduce swelling. Take acetaminophen (Tylenol) or ibuprofen (Advil, Motrin) according to directions as needed for pain. Follow up with orthopedic surgery in 7 days if symptoms do not improve. Call for appointment. Seek immediate medical attention if you have severe pain not managed with pain medication, you are unable to walk or bear any weight, develop numbness or tingling in the hand or fingers, or have any worsening of symptoms. - Billing Disposition and Condition Condition: STABLE Disposition: Home
== END 2018-12-30 20:06 | disposition home or self-care (01) ==
LOC: UCCORT 18:50
DX: M25.532 Pain in left wrist (principal); S63.502A Unspecified sprain of left wrist, initial encounter; W19.XXXA Unspecified fall, initial encounter; Y93.89 Activity, other specified; Y92.219 Unspecified school as the place of occurrence of the external cause; Y99.0 Civilian activity done for income or pay
CPT/HCPCS: 99212; G0463

== ENCOUNTER 2019-05-27 21:41 | Emergency (ER) | payer OTHER ==
--- OUTSIDE RECORDS SUMMARY | 2019-05-27 22:53 | XMS REPORT | Continuity of Care Document ---
:1995 External Reference #:[id number] Author Name Cheryl Shahid MD Address [address], [address] [place] [address] Care Team Providers Name Role Phone Gerald Guillory MD Care Team Information Die Repair Machinist [phone] Arnold Sykes MD Care Team Information Die Repair Machinist [phone] Problems Active Problems Provider Date Gastroesophageal reflux disease Cheryl Shahid MD Onset: 05/07/2019 Social History Type Date Description Comments Sex Unknown ETOH Use Denies alcohol use Tobacco Use Start: Unknown Patient has never smoked Smoking Status Reviewed: 05/20/19 Patient has never smoked Tattoo/Piercing Tattoo Allergies, Adverse Reactions, Alerts Active Allergies Reaction Severity Comments Date Morphine ITCHY HIVES, INCREASED HEART RATE Severe 04/01/2019 Penicillin HIVES Moderate 04/01/2019 Reglan STOMACH PAIN Severe 04/01/2019 Bactrim HIVES Moderate 04/01/2019 Pantoprazole LIVER MARKER OFF Moderate 04/01/2019 Medications Active Medications SIG Qnty Indications Ordering Provider Date Dexilant 1 by mouth 30caps Cheryl Shahid MD 05/06/[address] every day Immunizations Description No Information Available Vital Signs Date Vital Result Comment 05/20/2019 10:08am BP Systolic 140 mmHg BP Diastolic 86 mmHg Heart Rate 67 /min Height 78 inches 6'6" Weight 350.00 lb BMI (Body Mass Index) 40.4 kg/m2 Body Temperature 98.1 F 04/01/2019 8:50am BP Systolic 141 mmHg BP Diastolic 84 mmHg Heart Rate 76 /min Height 78 inches 6'6" Weight 352.00 lb BMI (Body Mass Index) 40.7 kg/m2 Body Temperature 97.8 F Results Description No Information Available Procedures Date Code Description Status 05/06/2019 38222 Endoscopy W/BX Completed Medical Devices Description No Information Available Encounters Type Date Location Provider Dx Diagnosis Office Visit 04/01/2019 [facility] Office Cheryl Shahid MD K21.9 Gastro- esophageal 9:00a reflux disease without esophagitis R10.13 Epigastric pain R13.10 Dysphagia, unspecified Assessments Date Code Description Provider 05/20/2019 K29.70 Gastritis, unspecified, without bleeding Cheryl Shahid MD 05/20/2019 K21.9 Gastro-esophageal reflux disease without Cheryl Shahid MD esophagitis 05/20/2019 K44.9 Diaphragmatic hernia without obstruction or Cheryl Shahid MD gangrene 05/20/2019 R07.9 Chest pain, unspecified Cheryl Shahid MD 05/06/2019 K29.70 Gastritis, unspecified, without bleeding Cheryl Shahid MD 05/06/2019 K21.9 Gastro-esophageal reflux disease without Cheryl Shahid MD esophagitis 05/06/2019 K44.9 Diaphragmatic hernia without obstruction or Cheryl Shahid MD gangrene 04/01/2019 K21.9 Gastro-esophageal reflux disease without Cheryl Shahid MD esophagitis 04/01/2019 R10.13 Epigastric pain Cheryl Shahid MD 04/01/2019 R13.10 Dysphagia, unspecified Cheryl Shahid MD Plan of Treatment Future Appointment(s):07/28/2019 9:30 am - Cheryl Shahid MD at [place] [id number] Office Functional Status Description No Information Available Mental Status Description No Information Available Referrals Refer to Dr Reason for Referral Status Appt Date Cheryl Shahid MD ENDO Created [address] [place] [phone] Cheryl Shahid MD INITIAL VISIT GOOD UNTIL 08/24/19 REMAINING 3 GOOD Created UNTIL 02/25/[address] [place] [id number] [phone]
--- OUTSIDE RECORDS SUMMARY | 2019-05-27 22:53 | XMS REPORT | Continuity of Care Document ---
:1995 External Reference #:[id number] Author Name Cheryl Shahid MD Address [address], [address] [place] [address] Care Team Providers Name Role Phone Gerald Guillory MD Care Team Information Ultrasound Specialist [phone] Arnold Sykes MD Care Team Information Ultrasound Specialist [phone] Problems Description No Information Available Social History Type Date Description Comments Sex Unknown ETOH Use Denies alcohol use Tobacco Use Start: Unknown Patient has never smoked Smoking Status Reviewed: 04/01/19 Patient has never smoked Tattoo/Piercing Tattoo Allergies, Adverse Reactions, Alerts Active Allergies Reaction Severity Comments Date Morphine ITCHY HIVES, INCREASED HEART RATE Severe 04/01/2019 Penicillin HIVES Moderate 04/01/2019 Reglan STOMACH PAIN Severe 04/01/2019 Bactrim HIVES Moderate 04/01/2019 Pantoprazole LIVER MARKER OFF Moderate 04/01/2019 Medications Active Medications SIG Qnty Indications Ordering Provider Date Pepcid 1 By Mouth Twice Unknown 40mg Tablets A Day Immunizations Description No Information Available Vital Signs Date Vital Result Comment 04/01/2019 8:50am BP Systolic 141 mmHg BP Diastolic 84 mmHg Heart Rate 76 /min Height 78 inches 6'6" Weight 352.00 lb BMI (Body Mass Index) 40.7 kg/m2 Body Temperature 97.8 F Results Description No Information Available Procedures Description No Information Available Medical Devices Description No Information Available Encounters Description No Information Available Assessments Date Code Description Provider 04/01/2019 K21.9 Gastro-esophageal reflux disease without Cheryl Shahid MD esophagitis 04/01/2019 R10.13 Epigastric pain Cheryl Shahid MD 04/01/2019 R13.10 Dysphagia, unspecified Cheryl Shahid MD Plan of Treatment Future Appointment(s):05/20/2019 9:30 am - Cheryl Shahid MD at [facility]05/06/2019 12:30 pm - Cheryl Shahid MD at [facility] Functional Status Description No Information Available Mental Status Description No Information Available Referrals Refer to Reason for Referral Status Appt Date Cheryl Shahid MD INITIAL VISIT GOOD UNTIL 08/24/19 REMAINING 3 GOOD Created UNTIL 02/25/20 [address] [facility] [address] [place] [address] [phone]
[2019-05-27] MEDS ORDERED: NS 0.9% 1000 ML** 1,000 ML IV.FLUID IV ONE (23:21)
--- NOTE | 2019-05-27 23:32 | ED ---
Complex/Multi-Sys Presentation - HPI Summary HPI Summary: Patient is a 24 y/o M presenting to [facility] with complaints of swollen throat, cough, hot flashes, chills, upper abdominal pain, body aches, and watery, crusty and red eyes. He states that 05/23/19, he had onset of swollen throat, hot flashes, and chills. Patient was evaluated at an urgent care on 05/25/19. He was called 05/26/19 and informed of positive influenza H. Patient was prescribed Z-pack. He states that he took two doses yesterday, 05/26/19, and one dose today , 05/27/19. Patient states that throat swelling has since resolved. However, he has had onset of watery eyes, crustiness, and injected conjunctiva. Patient reports cough that is less severe since this Sx onset 05/23/19. Some decreased appetite is noted as well. Patient also endorses upper abdominal pain. He states that his doctor is concerned for gallstones and states that he is scheduled for imagining of his gallbladder this week. PMHx of hiatal hernia is noted as well. He denies tobacco, alcohol, and substance usage. Patient has not had his flu shot this year. SOB is denied. On life cycle assessment analyst, nothing is noted to aggravate/alleviate Sx. Home medications and allergies are reviewed. - History Of Current Complaint Chief Complaint: EDFluSymptoms Time Seen by Provider: 05/27/19 23:14 Hx Obtained From: Patient Onset/Duration: Lasting Days, Still Present, Resolved - throat swelling Timing: Constant, Days Location: Pain At: - upper abdomen Aggravating Factor(s): nothing Alleviating Factor(s): nothing Associated Signs And Symptoms: Positive: Cough, Abdominal Pain, Other - positive - swollen throat, cough, hot flashes, chills, upper abdominal pain, body aches, decreased appetite and watery, crusty, and red eyes. Negative: SOB - Allergies/Home Medications Allergies/Adverse Reactions: Allergies Allergy/AdvReac Type Severity Reaction Status Date / Time metoclopramide Allergy Tachycardia Verified 12/30/18 19:08 peanut Allergy Swelling Verified 12/30/18 19:08 Penicillins Allergy Hives Verified 12/30/18 19:08 sulfamethoxazole Allergy Rash Verified 05/27/19 21:56 [From Bactrim] trimethoprim [From Bactrim] Allergy Rash Verified 05/27/19 21:56 lansoprazole AdvReac Diaphoresis Verified 12/30/18 19:08 morphine AdvReac stiff Verified 12/30/18 19:08 neck/GI upset PMH/Surg Hx/FS Hx/Imm Hx Endocrine/Hematology History: Denies: Hx Anticoagulant Therapy, Hx Blood Disorders, Hx Diabetes Cardiovascular History: Denies: Hx Congestive Heart Failure, Hx Hypertension, Hx Pacemaker/ICD Respiratory History: Denies: Hx Asthma GI History: Reports: Hx Gastroesophageal Reflux Disease, Hx Hiatal Hernia Denies: Hx Cirrhosis, Hx Crohn's Disease, Hx Diverticulosis, Hx Gall Bladder Disease, Hx Gastrointestinal Bleed, Hx Irritable Bowel, Hx Obstructive Bowel History: Denies: Hx Renal Disease Sensory History: Denies: Hx Contacts or Glasses, Hx Hearing Aid Opthamlomology History: Denies: Hx Contacts or Glasses Neurological History: 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 - Surgical History Surgery Procedure, Year, and Place: hiatal hernia repair Aug 2016, fundliplication, foot Infectious Disease History: No Infectious Disease History: Denies: Traveled Outside the [place] in Last 30 Days - Family History Known Family History: Positive: Cardiac Disease - father - Social History Alcohol Use: None Hx Substance Use: No Substance Use Type: Reports: None Hx Tobacco Use: No Smoking Status (MU): Never Smoked Tobacco Review of Systems Constitutional: Other - positive - hot flashes, body aches Positive: Chills Eyes: Other - watery, crusty, and red eyes ENT: Other - positive - swollen throat, since resolved Positive: Cough. Negative: Shortness Of Breath Gastrointestinal: Other - positive - decreased appetite Positive: Abdominal Pain All Other Systems Reviewed And Are Negative: Yes Physical Exam - Summary Physical Exam Summary: Appearance: Well-appearing, obese, lying in bed comfortably Skin: Warm, dry, no obvious rash Eyes: Injected conjunctiva, no pallor or scleral icterus noted. There is no crustiness or drainage noted. ENT: mucous membranes moist, throat is erythematous. There is no significant swelling or exudate noted. Neck: Supple, nontender, no cervical adenopathy Respiratory: Clear to auscultation, no signs of respiratory distress Cardiovascular: Tachycardia is noted. Normal S1, S2. No murmurs. Normal distal pulses in tibial and radial bilaterally. Abdomen: The liver edge is an inch below the costal margin and with some associated tenderness. Soft, normal active bowel sounds present Musculoskeletal: Normal, Strength/ROM Intact Neurological: A&Ox3, awake and alert, mentation is normal, speech is fluent and appropriate Psychiatric: affect is normal, does not appear anxious or depressed Triage Information Reviewed: Yes Vital Signs On Initial Exam: Initial Vitals Temp Pulse Resp BP Pulse Ox 99.0 F 111 20 177/113 99 05/27/19 21:56 05/27/19 21:56 05/27/19 21:56 05/27/19 21:56 05/27/19 21:56 Vital Signs Reviewed: Yes Procedures - Sedation Patient Received Moderate/Deep Sedation with Procedure: No Diagnostics - Vital Signs Vital Signs Temp Pulse Resp BP Pulse Ox 05/27/19 23:16 98.9 F 05/27/19 21:56 99.0 F 111 20 177/113 99 - Laboratory Result Diagrams: 05/28/19 00:14 05/28/19 00:14 Lab Statement: Any lab studies that have been ordered have been reviewed, and results considered in the medical decision making process. - Radiology CXR Radiology Interpretation Completed By: ED Physician Summary of Radiographic Findings: No acute process, pending official report. Complex Multi-Symp Course/Dx Assessment/Plan: Patient is a 24 y/o M presenting to [facility] with complaints of swollen throat, cough, hot flashes, chills, upper abdominal pain, body aches, and watery, crusty and red eyes. He states that 05/23/19, he had onset of swollen throat, hot flashes, and chills. Patient was evaluated at an urgent care on 05/25/19. He was called 05/26/19 and informed of positive influenza H. Patient was prescribed Z-pack. He states that he took two doses yesterday, , and one dose today, 05/27/19. Patient states that throat swelling has since resolved. However, he has had onset of watery eyes, crustiness, and injected conjunctiva. Patient reports cough that is less severe since this Sx onset . Some decreased appetite is noted as well. Patient also endorses upper abdominal pain. He states that his doctor is concerned for gallstones and states that he is scheduled for imagining of his gallbladder this week. PMHx of hiatal hernia is noted as well. He denies tobacco, alcohol, and substance usage. Patient has not had his flu shot this year. SOB is denied. Patient is obese and tachycardic. There is injected conjunctiva. Throat is erythematous. There is no significant throat swelling, no exudate. There is no cervical adenopathy. The liver edge is an inch below the costal margin and with some associated tenderness. Influenza A and B were negative. Bloodwork was obtained and WNL with exception of creatinine 1.22, glucose 122, and CRP 34.23. During ED course, patient received fluids. Patient was discharged to home with PCP follow up. - Diagnoses Provider Diagnoses: URI (upper respiratory infection) Discharge ED - Sign-Out/Discharge Documenting (check all that apply): Patient Departure - discharge - Discharge Plan Condition: Good Disposition: HOME Patient Education Materials: Upper Respiratory Infection (ED) Referrals: Arnold Sykes MD [Primary Care Provider] - Additional Instructions: Continue the antibiotic prescribed earlier, although it is possible that this was a colonizer rather than the causative agent of your illness. From a clinical perspective, this is behaving more like a viral infection. Those types of infections have to be handled by your body's immune system, but since you are generally healthy and young this should not be a problem. The tests we did did not show signs of pneumonia. - Billing Disposition and Condition Condition: GOOD Disposition: Home - Attestation Statements Document Initiated by Rosalina: Yes Documenting Scribe: ALFREDA HIRSCH Provider For Whom Rosalina is Documenting (Include Credential): ADRIANA OSCAR MD Scribe Attestation: ALFREDA Gonzalez, scribed for ADRIANA OSCAR MD on 05/28/19 at 0557. Scribe Documentation Reviewed: Yes Provider Attestation: The documentation as recorded by the ALFREDA macdonald accurately reflects the service I personally performed and the decisions made by me, ADRIANA OSCAR MD Status of Scribe Document: Viewed
[2019-05-28 00:14] LABS: Influenza A Molecular NEGATIVE (Negative); Influenza B Molecular NEGATIVE (Negative)
[2019-05-28 00:44] LABS: ABS Basophils 0.1 10^3/ul (0-0.2); ABS Eosinophils 0.2 10^3/ul (0-0.6); ABS Lymphocytes 1.7 10^3/ul (1.0-4.8); ABS Monocytes 0.8 10^3/ul (0-0.8); ABS Neutrophils 4.8 10^3/ul (1.5-7.7); Eosinophil % 2.2 %; Hematocrit 43 % (42-52); Hemoglobin 14.5 g/dL (14.0-18.0); Lymphocyte % 23.1 %; Mean Corpuscular HGB Conc 34 g/dL (31-36); Mean Corpuscular Hemoglobin 28 pg (27-31); Mean Corpuscular Volume 84 fL (80-94); Mean Platelet Volume 8.1 fL (7.4-10.4); Platelet Count 235 10^3/uL (150-450); Red Blood Count 5.13 10^6 /uL (4.18-5.48); Red Cell Distribution Width 14 % (10-15); White Blood Count 7.6 10^3/uL (3.5-10.8)
[2019-05-28 01:00] LABS: INR 0.99 (0.82-1.09)
[2019-05-28 01:04] LABS: Albumin 4.2 g/dL (3.2-5.2); Albumin/Globulin Ratio 1.7 (1-3); C Reactive Protein 34.23 mg/L (<8.01); Calcium 8.9 mg/dL (8.6-10.3); EGFR African American 86.9 (>60); EGFR Non-African American 71.8 (>60); Globulin 2.5 g/dL (2-4); Potassium 3.9 mmol/L (3.5-5.0); Total Bilirubin 0.4 mg/dL (0.2-1.0); Total Protein 6.7 g/dL (6.4-8.9)
[2019-05-28 01:27] VITALS: BP 155/89
== END 2019-05-28 01:27 | disposition home or self-care (01) ==
LOC: ED 21:41
DX: J06.9 Acute upper respiratory infection, unspecified (principal); K21.9 Gastro-esophageal reflux disease without esophagitis; Z88.1 Allergy status to other antibiotic agents; Z88.5 Allergy status to narcotic agent; Z88.0 Allergy status to penicillin; Z88.2 Allergy status to sulfonamides; Z88.8 Allergy status to other drugs, medicaments and biological substances
CPT/HCPCS: 36415; 71046; 80053; 83605; 84484; 85025; 85610; 86140; 87040; 87070; 99283